=== PATIENT | female | born 1945 | race Caucasian/White ===

== ENCOUNTER 2023-02-21 10:16 | Emergency (ER) | payer OTHER ==
--- OUTSIDE RECORDS SUMMARY | 2023-02-21 10:29 | XMS REPORT | Continuity of Care Document ---
:1945 Author Organization [facility] t Address [address] [place] [address] Care Team Providers Name Role Phone Fabrizio VALLE, Sayda Primary Care Physician Sayda Dinh Attending Clinician NHAN HOUSER Attending Clinician Unavailable Nhan Houser Attending Clinician THEA POWELL Attending Clinician Unavailable Thea Powell MD Attending Clinician Anupam Grider Attending Clinician ANUPAM GRIDER Attending Clinician Unavailable Urbano Arvizu Attending Clinician Unavailable VISIT, NURSE [facility] Attending Clinician Unavailable Junior Duke MD Attending Clinician Sayda Dinh Attending Clinician VISIT, NURSE YAMILETHN Attending Clinician Unavailable Marycruz Ferguson Attending Clinician THEA POWELL Admitting Clinician Unavailable Sayda Dinh Admitting Clinician Unavailable Payers Payer Name Policy Type Policy Number Effective Date Expiration Date Trip WHITTEN [id number] 2016 00:00:00 Problems Condition Condition Condition Status Onset Resolution Last Treating Co mments Source Name Details Category Date Date Treatment Clinician Date Fatigue Fatigue Diagnosis Active 2023-02-20 Memoria (finding) (finding) 02-17 09:03:03 l Active 00:00: [place] 02/17/2023 00 Diagnosis 02/20/2023 [facility] [place] Chronic Chronic Diagnosis Active 2023-02-20 Memoria cough cough 02-17 09:03:03 l (finding) (finding) 00:00: Herm theresa Active 00 02/17/2023 Diagnosis 02/20/2023 Medical [facility] [place] G31.84 G31.84 Diagnosis Active 2023-02-11 Me moria Active 02-04 12:23:00 l 02/04/2023 00:00: Jann wallace 00 [place] Acute Acute Diagnosis Active 2022-11-16 Mem oria bacterial bacterial 11-13 12:35:07 l bronchitis bronchitis 00:00: Vernon medrano (disorder) (disorder) 00 Active 11/13/2022 Diagnosis 11/16/2022 [facility] [place] Acute left Acute Diagnosis Active 2022-09-21 Memoria otitis left 3 12:47:11 l media otitis 00:00: Faustino (disorder) media 00 (disorder) Active 09/18/2022 Diagnosis 09/21/2022 [facility] [place] BILATERAL BILATERAL Diagnosis Active 2022-02-09 Memoria HAND HAND 02-09 09:03:00 l NUMBNESS NUMBNESS 00:00: Jann wallace TINGLING TINGLING 00 Active 02/09/2022 [facility] S/P RTC S/P RTC Diagnosis Active 2018-02-20 Memoria REPAIR REPAIR -17 10:13:00 l Active 08:00: Faustino 10/28/2017 00 [facility] [facility] Hypertensi Hypertensi Disease Active M ethodi ve urgency ve urgency 8-19 st 00:00: Hospita 00 l Anxiety Anxiety Disease Active [facility] Benign Benign Disease Active Univers hypertensi hypertensi it y of on on [facility] Hyperlipid Hyperlipid Disease Active U kashif emseven emia ity of [facility] CAD, CAD, Disease Active Overview: Univer s multiple multiple Formattin ity of vessel vessel g of this [place] note Medical might be Branch different from the original. 5 stents placed-se cardiolog ist-dr. Woodall Primary Primary Problem 2018-10-08 Oh moria osteoarthr osteoarthr 11:11:51 l itis, itis, Faustino right right shoulder shoulder 10/08/2018 [facility] [facility] Pain in Pain in Problem 2018-10-08 Me moria right right 11:11:51 l shoulder shoulder Jann n 10/08/2018 [facility] [facility] Muscle Muscle Problem 2018-10-08 Imer nahum weakness weakness 11:11:51 l (generaliz (generaliz [facility] ed) ed) 10/08/2018 [facility] [facility] Encounter Encounter Problem 2021-11-04 Memoria for for 01:27:53 l screening screening Herm theresa mammogram mammogram for for malignant malignant neoplasm neoplasm of breast of breast 11/04/2021 Medical Group,[facility] Z12.31 - Z12.31 - Diagnosis Active 2021-11-01 Memoria ENCNTR ENCNTR 09:58:00 l SCREEN SCREEN [place] MAMMOGRAM MAMMOGRAM FOR MA FOR MA Active [facility] G31.84 - G31.84 - Diagnosis Active 2021-10-03 Memoria MILD MILD 15:34:00 l COGNITIVE COGNITIVE Herm theresa IMPAIRMENT IMPAIRMENT , SO , SO Active [facility] [place] R20.2 - R20.2 - Diagnosis Active 2022-02-01 Memoria PARESTHESI PARESTHESI 10:13:00 l A OF SKIN A OF SKIN Herm theresa Active [facility] [place] [facility] Breast Breast Problem Active 2023-02-20 Imer nahum neoplasm neoplasm 09:03:03 l screening screening Herm theresa (procedure (procedure ) ) Active Problem 02/20/2023 Medical Group,[facility] Women[facility] Outpatient Imaging [place]^^^^^^ ^^^[id number] ,[facility] Coronary Coronary Problem Active 2023-02-20 Memoria arterioscl arterioscl 09:03:03 l erosis erosis Faustino (disorder) (disorder) Active Problem 02/20/2023 Medical Group,[facility] Outpatient Imaging [place]^^^^^^ ^^^[id number] ,[facility] Primary [facility] Herpes Herpes Problem Active 2023-02-20 Mem oria labialis labialis 09:03:03 l (disorder) (disorder) He rmann Active Problem 02/20/2023 Medical Group,[facility] Outpatient Imaging [place]^^^^^^ ^^^[id number] ,[facility] Hypertensi Hypertens Problem Active 2023-02-20 Memoria ve jovita 09:03:03 l disorder, disorder, Herm theresa systemic systemic arterial arterial (disorder) (disorder) Active Problem 02/20/2023 Medical Group,[facility] Outpatient [facility]^^^^^^ ^^^[id number] ,[facility] Primary [facility] Impaired Impaired Problem Active 2023-02-20 Memoria cognition cognition 09:03:03 l (finding) (finding) Herm theresa Active Problem 02/20/2023 Medical Group,[facility] Outpatient Imaging [place]^^^^^^ ^^^[id number] ,[facility], [facility] Impaired Problem Active 2023-02-20 Memoria fasting fasting 09:03:03 l glycaemia glycaemia Herm theresa (disorder) (disorder) Active Problem 02/20/2023 Medical Group,[facility] Outpatient Imaging [place]^^^^^^ ^^^[id number] ,[facility], [facility] Multiple Multiple Problem Active 2023-02-20 Memoria joint pain joint pain 09:03:03 l (finding) (finding) Herm theresa Active Problem 02/20/2023 [facility] Primary [facility] [place] Patient Patient Problem Active 2023-02-20 Me moria encounter encounter 09:03:03 l status status [place] (finding) (finding) Active Problem 02/20/2023 [facility] Outpatient Imaging [place]^^^^^^ ^^^[id number] ,[facility] Peripheral Periphera Problem Active 2023-02-20 Memoria nerve l nerve 09:03:03 l disease disease Faustino (disorder) (disorder) Active Problem 02/20/2023 [facility] Postmenopa Postmenop Problem Active 2023-02-20 Memoria usal state ausal 09:03:03 l (finding) state Faustino (finding) Active Problem 02/20/2023 [facility] Outpatient Imaging [place]^^^^^^ ^^^[id number] ,[facility] 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 He rmann episodes, episodes, mild mild (disorder) (disorder) Active Problem 02/20/2023 Medical Group,[facility] Outpatient Imaging [place]^^^^^^ ^^^[id number] ,[facility], [facility] [place],[facility] 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 Ely nn (disorder) of wrist (disorder) Active Problem 02/20/2023 Medical Group,[facility] Primary [facility] [place] 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 2023-02-20 Memoria rosis of erosis of 02-17 09:03:03 09:03:03 l coronary coronary 14:35: Jann n artery artery 00 (disorder) (disorder) 02/17/2023 Diagnosis 02/20/2023 Medical Group,[facility] Primary [facility] [place] Essential Essential Diagnosis 2023-02-20 2023-02-20 Memoria hypertensi hypertensi 02-17 09:03:03 09:03:03 l on on 14:35: Faustino (disorder) (disorder) 00 02/17/2023 Diagnosis 02/20/2023 Medical Group,[facility] Primary [facility] [place] History of Past Illness Condition Condition Condition Status Onset Resolution Last Treating Co mments Source Name Details Category Date Date Treatment Clinician Date Acute Acute Diagnosis 2022-11-16 2022-11-16 Memoria infective infective 5-03 12:35:07 12:35:07 l bronchitis bronchitis 20:03: He rmann (disorder) (disorder) 00 11/13/2022 Diagnosis 11/16/2022 [facility] [place] Mild Mild Diagnosis 2022-09-21 2022-09-21 Memoria recurrent recurrent 09-18 12:47:11 12:47:11 l major major 15:53: [place] depression depression 00 (disorder) (disorder) Diagnosis 09/21/2022 [facility] [place] Acute Acute Diagnosis 2022-09-21 2022-09-21 Memoria non-suppur non-suppur - 12:47:11 12:47:11 l ative ative 15:48: Faustino otitis otitis 00 media media (disorder) (disorder) 09/18/2022 Diagnosis 09/21/2022 Medical Group Pain in Pain in Problem 2022-03-09 2022-03-09 Memoria unspecifie unspecifie 03-06 03:28:04 03:28:04 l d joint d joint 13:38: Faustino 03/06/2022 00 03/09/2022 Medical Group Other Other Problem 2022-03-09 2022-03-09 Mitra stevenson specified specified 03-06 03:28:04 03:28:04 l mononeurop mononeurop 13:36: He marcela athies of athies of 00 bilateral bilateral upper upper limbs limbs 03/06/2022 Medical Group Polyneurop Polyneuro Problem 2022-02-11 2022-02-11 Memoria mikie rashid, 02-09 21:34:10 21:34:10 l unspecifie unspecifie 13:43: He rmann d d 00 02/09/2022 [facility] Pain in Pain in Problem 2022-01-24 2022-01-24 Memoria right right 01-21 02:00:20 02:00:20 l upper arm upper arm 20:09: Deborah cardenas 01/21/2022 00 01/24/2022 Medical Group Pain in Pain in Problem 2022-01-24 2022-01-24 Memoria left upper left upper 01-21 02:00:20 02:00:20 l arm arm 20:09: Faustino 01/21/2022 00 01/24/2022 Medical Group Atheroscle Atheroscl Problem 2022-01-24 2022-01-24 Memoria rotic erotic 01-21 02:00:20 02:00:20 l heart heart 20:03: Faustino disease of disease of 00 menominee menominee coronary coronary artery artery without without angina angina pectoris pectoris 01/21/2022 01/24/2022 Medical Group Impaired Impaired Problem 2022-01-24 2022-01-24 Memoria fasting fasting 01-21 02:00:20 02:00:20 l glucose glucose 20:03: Faustino 01/21/2022 00 01/24/2022 Medical Group Essential Essential Problem 2022-0 2022-01-24 2022-01-24 Memoria (primary) (primary) 01-21 02:00:20 02:00:20 l hypertensi hypertensi 20:03: Vernon rmann on on 01/21/2022 01/24/2022 Medical Group Paresthesi Paresthes Problem 2022-01-24 2022-01-24 Memoria a of skin ia of skin 01-21 02:00:20 02:00:20 l 01/21/2022 20:03: Jann wallace 01/24/2022 00 [facility] Restless Restless Problem 2021-10-19 2021-10-19 Memoria legs legs 4-05 03:52:58 03:52:58 l syndrome syndrome 16:16: Jann wallace 10/16/2021 00 2 [facility] Pain in Pain in Problem 2021-10-19 2021-10-19 Memoria left leg left leg 4-05 03:52:58 03:52:58 l 10/16/2021 16:06: Jann wallace 2 [facility] Other Other Problem 2021-07-29 2021-07-29 M emoria amnesia amnesia 1- 01:34:30 01:34:30 l 07/26/2021 17:26: Jann wallace 07/29/2021 00 [facility] Other Other Problem 2021-07-29 2021-07-29 M emoria gastritis gastritis 1- 01:34:30 01:34:30 l without without 17:21: Faustino bleeding bleeding 07/26/2021 2 [facility] Major Major Problem 2021-07-29 2021-07-29 M emoria depressive depressive 1-13 01:34:30 01:34:30 l disorder, disorder, 17:17: Herm theresa recurrent, recurrent, 00 mild mild 07/26/2021 2 [facility] Complete Complete Problem 2018-10-08 2018-10-08 Memoria rotator rotator 9-14 11:11:51 11:11:51 l cuff tear cuff tear 05:13: Deborah cardenas or rupture or rupture 12 of right of right shoulder, shoulder, not not specified specified as as traumatic traumatic 03/27/2018 10/08/2018 [facility] [facility] Allergies, Adverse Reactions, Alerts Allergy Allergy Status Severity Reaction(s) Onset Inactive Treating Comm ents Source Name Type Date Date Clinician Penicill Propensi Active Hives 2015-07 Method i ins ty to 0-21 st adverse 00:00: Hospita reaction 00 l s to drug Penicill Propensi Active Hives 2015-07 Method i ins ty to 0-21 st adverse 00:00: Hospita reaction 00 l s to drug Penicill DA Active U [facility] ins 03-13 Clear 00:00: Kumar 00 [facility] Penicill DA Active U [facility] ins 8 Clear 00:00: Kumar 00 [facility] PENICILL Drug Active Hives Univers INS Class 1-20 ity of 00:00: [place] 00 [facility] Penicill Propensi Active Hives As a Univer s ins ty to 1-20 child ity of adverse 00:00: [place] reaction 00 [facility] [place] penicill penicill Active Memori a ins ins l Faustino Family History Family Member Diagnosis Comments Start Date Stop Date Source Natural father CABG/Stent [facility] Natural father Heart attack [facility] Paternal aunt CABG/Stent [facility] Paternal grandmother CABG/Stent [facility] Social History Social Habit Start Date Stop Date Quantity Comments Source Sexual orientation 2018-09-29 Heterosexual Meth odist 14:28:57 (finding) Hospital Gender identity [facility] Exposure to 2022-07-16 2022-07-26 Not sure University of SARS-CoV-2 (event) 00:00:00 12:05:00 [facility] History of Social 2020-02-14 2020-02-[address] function 00:00:00 00:00:00 Hospital Alcohol intake 2020-02-14 2020-02-14 Current non-drinker M ethodist 00:00:00 00:00:00 of alcohol Hospital (finding) Tobacco use and 2011-08-02 2011-08-02 Smokeless tobacco Un iversity of exposure 00:00:00 00:00:00 non-user [facility] Sex Ass[birth year] At [birth year] [facility] 00:00:00 00:00:00 Hospital Smoking Status Start Date Stop Date Source Tobacco smoking status [facility] Medications Ordered Filled Start Stop Current Ordering Indication Dosage Frequency Signature Comments Components Source Medication Medication Date Date Medication? Clinician (SIG) Name Name diclofenac Yes = 1 tab, Mem oria sodium 50 8-07 PO, BID, l mg oral 18:38: PRN [place] enteric 00 NEEDED FOR coated, PAIN AND delayed-rel INFLAMMATI ease tablet ON, # 60 tab, 0 Refill(s), Pharmacy: [facility] [id number], 154.94, cm, 02/17/23 9:19:00 CDT, Height, 64.091, kg, 02/17/23 9:19:00 CDT, Weight benzonatate Yes 200 mg = 1 Memoria 200 mg oral 8-07 cap, PO, l capsule 14:43: TID, PRN Jann n 00 cough, do not crush or chew, X 10 day, # 30 cap, 0 Refill(s), Pharmacy: [facility] [id number], 154.94, cm, 02/17/23 9:19:00 CDT, Height, 64.091, kg, 02/17/23 9:19:00 CDT, Weight albuterol Yes 2 puff, Memor ia 90 mcg/inh 807 INHALATION l inhalation 14:43: , Q4H, PRN H ermann aerosol 00 for wheezing, # 1 ea, 0 Refill(s), Pharmacy: [facility] [id number], *may substitute any generic albuterol inhaler, 154.94, cm, 02/17/23 9:19:00 CDT, Height, 64.091, kg, 02/17/23 9:19:00 CDT, Weight predniSONE Yes 20 mg = 1 Me moria 20 mg oral 8-07 tab, PO, l tablet 14:18: Daily, # 7 Ely nn 00 tab, 0 Refill(s) rOPINIRole Yes ONE TO TWO M emoria 0.25 mg 7-17 TABLETS, l oral tablet 20:17: PO, Jann n 00 Bedtime, # 180 tab, 1 Refill(s), Pharmacy: [facility] [id number], 154.94, cm, 11/13/22 14:55:00 CDT, Height, 64.636, kg, 11/13/22 14:55:00 CDT, Weight omeprazole Yes = 1 cap, Mem oria 20 mg oral 6-21 PO, Daily, l delayed 15:22: # 90 Faustino release 00 unknown capsule unit, 0 Refill(s), Pharmacy: [facility], 154.94, cm, 11/13/22 14:55:00 CDT, Height, 64.636, kg, 11/13/22 14:55:00 CDT, Weight ATORVASTATI Yes ATORVASTAT Memoria N CALCIUM 6-13 IN CALCIUM l 40 MG 20:34: 40 MG [place] Tablet 00 Tablet, 1 tab, PO, Daily, # 90 tab, Refill(s) 0, Pharmacy: [facility], 154.94, cm, 11/13/22 14:55:00 CDT, Height, 64.636, kg, 11/13/22 14:55:00 CDT, Weight Azithromyci Yes See Memori a n 5 Day 5-03 Instructio l Dose Pack 20:03: ns, Take 2 He rmann 250 mg oral 00 tablets by tablet mouth the first day then 1 tablet by mouth days 2-5., X 5 day, # 6 tab, 0 Refill(s), Pharmacy: [facility] [id number], 154.94, cm, 11/13/22 14:55:00 CDT, Height, 64.636, kg, 11/13/22 14:55:00 CDT, Weight citalopram Yes = 1 tab, Mem oria 40 mg oral 4-11 PO, Daily, l tablet 22:57: # 90 tab, Jann n 00 1 Refill(s), Pharmacy: [facility], 154.94, cm, 09/18/22 9:38: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, Height, 62.455, kg, 09/18/22 9:38: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, Weight irbesartan Yes = 1 tab, Mem oria 300 mg oral 4-11 PO, Daily, l tablet 22:57: # 90 tab, Jann n 00 1 Refill(s), Pharmacy: [facility], 154.94, cm, 09/18/22 9:38: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, Height, 62.455, kg, 09/18/22 9:38: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, Weight Metoprolol 0 Yes = 1 tab, Mem oria Succinate 3-30 PO, Daily, l ER 100 mg 21:03: # 90 tab, Her heller oral 00 1 tablet, Refill(s), extended Pharmacy: release [facility], 154.94, cm, 09/18/22 9:38: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, Height, 62.455, kg, 09/18/22 9:38: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, Weight Zithromax 0 Yes See Memoria 250 mg oral 3-08 Instructio l tablet 15:49: ns, TAKE 2 Ely nn 00 TABLETS ON DAY ONE, THEN 1 TABLET DAILY ON DAYS 2 -4, # 6 tab, 0 Refill(s), Pharmacy: [facility] [id number], 154.94, cm, 09/18/22 9:38: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, Height, 62.455, kg, 09/18/22 9:38: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, Weight methotrexat 0 Yes 0 Memori a e 3-08 Refill(s) l 15:37: Faustino 00 folic acid Yes Daily, 0 Mem oria 3-08 Refill(s) l 15:37: Faustino 00 rOPINIRole 2021-07 Yes ONE TO TWO M emoria 0.25 mg 1-03 TABLETS, l oral tablet 14:33: PO, Jann n 00 Bedtime, # 180 tab, 1 Refill(s), Pharmacy: [facility], 154.94, cm, 03/06/22 8:32:00 CDT, Height, 62.727, kg, 03/06/22 8:32:00 CDT, Weight diclofenac 2021-07 Yes 50 mg = 1 Me moria sodium 50 1-03 tab, PO, l mg oral 14:33: BID, PRN Jann n enteric 00 pain and coated, inflammati delayed-rel on, # 60 ease tablet tab, 1 Refill(s), Pharmacy: [facility], 154.94, cm, 03/06/22 8:32:00 CDT, Height, 62.727, kg, 03/06/22 8:32:00 CDT, Weight diclofenac Yes 50 mg = 1 Me moria sodium 50 8-24 tab, PO, l mg oral 13:45: BID, PRN Jann n enteric 00 pain and coated, inflammati delayed-rel on, # 60 ease tablet tab, 1 Refill(s), Pharmacy: [facility] [id number], 154.94, cm, 03/06/22 8:32:00 CDT, Height, 62.727, kg, 03/06/22 8:32:00 CDT, Weight diclofenac Yes 50 mg = 1 Me moria sodium 50 8-24 tab, PO, l mg oral 13:45: BID, PRN Jann n enteric 00 pain and coated, inflammati delayed-rel on, # 60 ease tablet tab, 1 Refill(s), Pharmacy: [facility] [id number], 154.94, cm, 03/06/22 8:32:00 CDT, Height, 62.727, kg, 03/06/22 8:32:00 CDT, Weight Medrol 0 Yes See Memoria Dosepak 4 8-09 Instructio l mg oral 13:07: ns, PO, as Herm theresa tablet 00 directed on package labeling, X 6 day, # 1 ea, 0 Refill(s), Pharmacy: [facility] [id number], 154.94, cm, 02/09/22 8:01:00 CDT, Height, 60.455, kg, 02/09/22 8:01:00 CDT, Weight Medrol 0 Yes See Memoria Dosepak 4 8-09 Instructio l mg oral 13:07: ns, PO, as Herm theresa tablet 00 directed on package labeling, X 6 day, # 1 ea, 0 Refill(s), Pharmacy: [facility] [id number], 154.94, cm, 02/09/22 8:01:00 CDT, Height, 60.455, kg, 02/09/22 8:01:00 CDT, Weight citalopram 0 Yes = 1 tab, Mem oria 40 mg oral 8-02 PO, Daily, l tablet 20:08: # 90 tab, Jann n 00 1 Refill(s), Pharmacy: [facility] ([facility]), 154.94, cm, 02/09/22 8:01:00 CDT, Height, 60.455, kg, 02/09/22 8:01:00 CDT, Weight irbesartan 2021-0 Yes = 1 tab, Mem oria 300 mg oral 8-02 PO, Daily, l tablet 19:41: # 90 tab, Jann n 00 1 Refill(s), Pharmacy: [facility] ([facility]), 154.94, cm, 02/09/22 8:01:00 CDT, Height, 60.455, kg, 02/09/22 8:01:00 CDT, Weight Metoprolol 2021-0 Yes = 1 tab, Mem oria Succinate 8-02 PO, Daily, l ER 100 mg 19:41: # 90 tab, Her heller oral 00 1 tablet, Refill(s), extended Pharmacy: release [facility] ([facility]), 154.94, cm, 02/09/22 8:01:00 CDT, Height, 60.455, kg, 02/09/22 8:01:00 CDT, Weight gabapentin 2021-0 Yes 100 mg = 1 M emoria 100 mg oral 7-30 cap, PO, l capsule 13:42: TID, # 63 Ely nn 00 cap, 1 Refill(s), Pharmacy: [facility] [id number], 154.94, cm, 02/09/22 8:01:00 CDT, Height, 60.455, kg, 02/09/22 8:01:00 CDT, Weight gabapentin 2021-0 Yes 100 mg = 1 M emoria 100 mg oral 7-30 cap, PO, l capsule 13:42: TID, # 63 Ely nn 00 cap, 1 Refill(s), Pharmacy: [facility] [id number], 154.94, cm, 02/09/22 8:01:00 CDT, Height, 60.455, kg, 02/09/22 8:01:00 CDT, Weight doxycycline 2-0 Yes 100 mg = 1 Memoria hyclate 100 7-19 tab, PO, l mg oral 17:01: Q12H, X 7 Ely nn tablet 00 day, # 14 tab, 0 Refill(s), Pharmacy: [facility] [id number], 154.94, cm, 01/21/22 14:36:00 CDT, Height, 61.455, kg, 01/21/22 14:36:00 CDT, Weight doxycycline 2021-0 Yes 100 mg = 1 Memoria hyclate 100 7-19 tab, PO, l mg oral 17:01: Q12H, X 7 Ely nn tablet 00 day, # 14 tab, 0 Refill(s), Pharmacy: [facility] [id number], 154.94, cm, 01/21/22 14:36:00 CDT, Height, 61.455, kg, 01/21/22 14:36:00 CDT, Weight rOPINIRole 2021-0 Yes See Memoria 0.25 mg 4-05 Instructio l oral tablet 16:17: ns, 1-2 po Faustino 00 before betime, # 60 tab, 1 Refill(s), Pharmacy: [facility] [id number], 154.94, cm, 10/16/21 11:01:00 CDT, Height, 62.091, kg, 10/16/21 11:01:00 CDT, Weight rOPINIRole 2021-0 Yes See Memoria 0.25 mg 4-05 Instructio l oral tablet 16:17: ns, 1-2 po Faustino 00 before betime, # 60 tab, 1 Refill(s), Pharmacy: [facility] [id number], 154.94, cm, 10/16/21 11:01:00 CDT, Height, 62.091, kg, 10/16/21 11:01:00 CDT, Weight irbesartan 2021-0 Yes 300 mg = 1 M emoria 300 mg oral 1-13 tab, PO, l tablet 17:22: Daily, # Faustino 00 90 tab, 1 Refill(s), Pharmacy: 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, 154.94, cm, 07/26/21 11:06: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, Height, 61.273, kg, 07/26/21 11:06: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, Weight omeprazole 0 Yes 20 mg = 1 Me moria 20 mg oral 1-13 cap, PO, l delayed 17:21: Daily, 60 Ely nn release 00 unknown capsule unit, # 90 cap, 3 Refill(s), Pharmacy: [facility] Pharmacy Mail Delivery, 154.94, cm, 07/26/21 11:06: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, Height, 61.273, kg, 07/26/21 11:06: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, Weight omeprazole 0 Yes 20 mg = 1 Me moria 20 mg oral 1-13 cap, PO, l delayed 17:21: Daily, 60 [place] nn release 00 unknown capsule unit, # 90 cap, 3 Refill(s), Pharmacy: [facility] Mail Delivery, 154.94, cm, 07/26/21 11:06: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, Height, 61.273, kg, 07/26/21 11:06: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, Weight atorvastati 0 Yes 40 mg = 1 M emoria n 40 mg 1-13 tab, PO, l oral tablet 17:20: Daily, 90 H ermann 00 tab, # 90 tab, 3 Refill(s), Pharmacy: [facility] Mail Delivery, 154.94, cm, 07/26/21 11:06: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, Height, 61.273, kg, 07/26/21 11:06: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, Weight atorvastati 2021-0 Yes 40 mg = 1 M emoria n 40 mg 1-13 tab, PO, l oral tablet 17:20: Daily, 90 H ermann 00 tab, # 90 tab, 3 Refill(s), Pharmacy: [facility] Mail Delivery, 154.94, cm, 07/26/21 11:06: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, Height, 61.273, kg, 07/26/21 11:06: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, Weight Metoprolol 0 Yes 100 mg = 1 M emoria Succinate 1-13 tab, PO, l ER 100 mg 17:18: Daily, 90 Her heller oral 00 tab, # 30 tablet, tab, 0 extended Refill(s), release Pharmacy: [facility] [id number], 154.94, cm, 07/26/21 11:06: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, Height, 61.273, kg, 07/26/21 11:06: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, Weight citalopram 2-0 Yes 40 mg = 1 Me moria 40 mg oral 1-13 tab, PO, l tablet 17:18: Daily, # [place] 00 90 tab, 1 Refill(s), Pharmacy: 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 Mail Delivery, 154.94, cm, 07/26/21 11:06: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, Height, 61.273, kg, 07/26/21 11:06: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, Weight metoprolol 2020-07 Yes TAKE 1 Metho di succinate 0-[address] XL 00:00: EVERY Hospita (TOPROL-XL) 00 NIGHT l 100 mg 24 hr tablet metoprolol 2020-07 Yes TAKE 1 Metho di succinate 0-[address] XL 00:00: EVERY Hospita (TOPROL-XL) 00 NIGHT l 100 mg 24 hr tablet metoprolol 2020-07 Yes TAKE 1 Metho di succinate 0-[address] XL 00:00: EVERY Hospita (TOPROL-XL) 00 NIGHT l 100 mg 24 hr tablet metoprolol 2020-07 Yes TAKE 1 Metho di succinate 0-[address] XL 00:00: EVERY Hospita (TOPROL-XL) 00 NIGHT l 100 mg 24 hr tablet doxycycline Yes 100 mg = 1 Memoria hyclate 100 9-23 tab, PO, l MG Oral 20:36: Q12H, X 10 Herm theresa Tablet day, # 20 tab, 0 Refill(s), Pharmacy: [facility] [id number], 154.94, cm, 09/12/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, 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, 60.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, kg, 09/12/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, Weight doxycycline Yes 100 mg = 1 Memoria hyclate 100 9-23 tab, PO, l MG Oral 20:36: Q12H, X 10 Herm theresa Tablet 00 day, # 20 tab, 0 Refill(s), Pharmacy: [facility] [id number], 154.94, cm, 09/12/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, Height, 60.091, kg, 09/12/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, Weight {21 0 Yes See Memoria (Methylpred 9-21 Instructio l nisolone 4 21:49: ns, PO, as H ermann MG Oral 00 directed Tablet on package [Medrol]) } labeling, Pack X 6 day, # [Medrol 1 ea, 0 Dosepak] Refill(s), Pharmacy: [facility] [id number], 154.94, cm, 09/12/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, Height, 60.091, kg, 09/12/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, Weight {2020-0 Yes See Memoria (Methylpred 04-03 Instructio l nisolone 4 21:49: ns, PO, as H ermann MG Oral 00 directed Tablet on package [Medrol]) } labeling, Pack X 6 day, # [Medrol 1 ea, 0 Dosepak] Refill(s), Pharmacy: [facility] [id number], 154.94, cm, 09/12/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, Height, 60.091, kg, 09/12/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, Weight Fluticasone 0 Yes 2 spray, Me moria propionate - NASAL, l 0.05 20:17: Daily, PRN Faustino MG/ACTUAT 00 Nasal Metered Congestion Dose Nasal , in each Fred nostril, # [Flonase] 16 gm, 1 Refill(s), Pharmacy: [facility] [id number], 154.94, cm, 09/12/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, Height, 60.091, kg, 09/12/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, Weight Fluticasone Yes 2 spray, Me moria propionate - NASAL, l 0.05 20:17: Daily, PRN Faustino MG/ACTUAT 00 Nasal Metered Congestion Dose Nasal , in each Fred nostril, # [Flonase] 16 gm, 1 Refill(s), Pharmacy: [facility] [id number], 154.94, cm, 09/12/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, Height, 60.091, kg, 09/12/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, Weight Flonase 0 Yes 2 spray, Memori a 0.05 mg/inh - NASAL, l nasal spray 20:17: Daily, PRN [place] 00 Nasal Congestion , in each nostril, # 16 gm, 1 Refill(s), Pharmacy: [facility] [id number], 154.94, cm, 09/12/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, Height, 60.091, kg, 09/12/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, Weight atorvastati Yes 90 tab, 0 M emoria n 40 mg 9-21 Refill(s) l oral tablet 18:50: Jann n 00 Metoprolol Yes 90 tab, 0 Me moria Succinate 9-21 Refill(s) l ER 100 mg 18:50: Faustino oral 00 tablet, extended release omeprazole Yes 60 unknown M emoria 20 mg oral 9-21 unit, 0 l delayed 18:50: Refill(s) [place] nn release 00 capsule [id number] Yes 4000 mL, 0 Mem oria with 9-21 Refill(s) l Electrolyte 18:50: Jann n s 00 (Eqv-NuLYTE LY) oral powder for reconstitut ion {2 (480 ML Yes 354 mL, 0 Me moria Magnesium 9-21 Refill(s) l Sulfate 18:50: [place] 0.0277 00 MEQ/ML / potassium sulfate 0.0374 MEQ/ML / sodium sulfate 0.257 MEQ/ML Oral Solution) } Pack [Suprep Bowel Prep Kit] atorvastati Yes 90 tab, 0 M emoria n 40 mg 9-21 Refill(s) l oral tablet 18:50: Jann n 00 Metoprolol Yes 90 tab, 0 Me moria Succinate 9-21 Refill(s) l ER 100 mg 18:50: Faustino oral 00 tablet, extended release omeprazole Yes 60 unknown M emoria 20 mg oral 9-21 unit, 0 l delayed 18:50: Refill(s) [place] nn release 00 capsule {2 (480 ML Yes 354 mL, 0 Me moria Magnesium 9-21 Refill(s) l Sulfate 18:50: [place] 0.0277 00 MEQ/ML / potassium sulfate 0.0374 MEQ/ML / sodium sulfate 0.257 MEQ/ML Oral Solution) } Pack [Suprep Bowel Prep Kit] PEG-3350 Yes 4000 mL, 0 Mem oria with 9-21 Refill(s) l Electrolyte 18:50: Jann n s 00 (Eqv-NuLYTE LY) oral powder for reconstitut ion irbesartan Yes TAKE 1 Metho di (AVAPRO) 6-[address] 300 MG 00:00: EVERY DAY Hospit a tablet 00 l atorvastati Yes TAKE 1 Meth noah n (LIPITOR) 6-[address] 40 mg 00:00: EVERY Hospita tablet 00 NIGHT l irbesartan Yes TAKE 1 Metho di (AVAPRO) 6-[address] 300 MG 00:00: EVERY DAY Hospit a tablet 00 l atorvastati Yes TAKE 1 Meth noah n (LIPITOR) 6-[address] 40 mg 00:00: EVERY Hospita tablet 00 NIGHT l irbesartan Yes TAKE 1 Metho di (AVAPRO) 6-[address] 300 MG 00:00: EVERY DAY Hospit a tablet 00 l atorvastati Yes TAKE 1 Meth noah n (LIPITOR) 6-[address] 40 mg 00:00: EVERY Hospita tablet 00 NIGHT l irbesartan Yes TAKE 1 Metho di (AVAPRO) 6-[address] 300 MG 00:00: EVERY DAY Hospit a tablet 00 l atorvastati Yes TAKE 1 Meth noah n (LIPITOR) 6-[address] 40 mg 00:00: EVERY Hospita tablet 00 NIGHT l irbesartan Yes TAKE 1 Metho di (AVAPRO) 6-[address] 300 MG 00:00: EVERY DAY Hospit a tablet 00 l atorvastati Yes TAKE 1 Meth noah n (LIPITOR) 6-[address] 40 mg 00:00: EVERY Hospita tablet 00 NIGHT l Phenazopyri No 200 mg = 1 Memoria dine 3-02 tab, PO, l hydrochlori 20:45: TID, PRN He rmann de 200 MG 00 Dysuria, X Oral Tablet 2 day, # 6 [Pyridium] tab, 0 Refill(s), Pharmacy: [facility], 154.94, cm, 09/12/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, 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, 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, kg, 09/12/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, Weight Nitrofurant 0 Yes 100 mg = 1 Memoria oin 100 MG 3-02 cap, PO, l Oral 20:45: BID, X 7 Faustino Capsule 00 day, # 14 [Macrobid] cap, 0 Refill(s), Pharmacy: [place] [id number], 154.94, cm, 09/12/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, Height, 60.091, kg, 09/12/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, Weight Phenazopyri No 200 mg = 1 Memoria dine 3-02 tab, PO, l hydrochlori 20:45: TID, PRN He rmann de 200 MG 00 Dysuria, X Oral Tablet 2 day, # 6 [Pyridium] tab, 0 Refill(s), Pharmacy: [facility], 154.94, cm, 09/12/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, Height, 60.091, kg, 09/12/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, Weight Nitrofurant Yes 100 mg = 1 Memoria oin 100 MG 3-02 cap, PO, l Oral 20:45: BID, X 7 [place] Capsule 00 day, # 14 [Macrobid] cap, 0 Refill(s), Pharmacy: [place] [id number], 154.94, cm, 09/12/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, Height, 60.091, kg, 09/12/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, Weight Aspirin Low Yes 81 mg = 1 M emoria Dose 81 mg 2-03 tab, CHEW, l oral 15:59: Daily, 0 [place] tablet, 00 Refill(s) chewable Aspirin Low 0 Yes 81 mg = 1 M emoria Dose 81 mg 2-03 tab, CHEW, l oral 15:59: Daily, 0 [place] tablet, 00 Refill(s) chewable Aspirin Low 2020-0 Yes 81 mg = 1 M emoria Dose 81 mg 2-03 tab, CHEW, l oral 15:59: Daily, 0 Faustino tablet, 00 Refill(s) chewable citalopram Yes 40 mg = 1 Me moria 40 mg oral 2-03 tab, PO, l tablet 15:56: Daily, # [place] 00 90 tab, 3 Refill(s), Pharmacy: [facility]ie, 157.48, cm, 08/16/20 9:49: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, Height, 59.636, kg, 08/16/20 9:49: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, Weight citalopram 0 Yes 40 mg = 1 Me moria 40 mg oral 2-03 tab, PO, l tablet 15:56: Daily, # [place] 00 90 tab, 3 Refill(s), Pharmacy: [facility], 157.48, cm, 08/16/20 9:49: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, Height, 59.636, kg, 08/16/20 9:49: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, Weight citalopram 2019-07 Yes 40 mg = 1 Me moria 40 mg oral 1-09 tab, PO, l tablet 17:22: Daily, # Faustino 00 90 tab, 0 Refill(s), Pharmacy: [facility], 157.48, cm, 03/16/20 10:45:00 CDT, Height, 61.273, kg, 03/16/20 10:45:00 CDT, Weight citalopram 2019-07 Yes 40 mg = 1 Me moria 40 mg oral 1-09 tab, PO, l tablet 17:22: Daily, # Faustino 00 90 tab, 0 Refill(s), Pharmacy: [facility], 157.48, cm, 03/16/20 10:45:00 CDT, Height, 61.273, kg, 03/16/20 10:45:00 CDT, Weight naproxen 2020-0 Yes 250mg Q.5D Take 250 Meth noah (NAPROSYN) 9-[address] 250 MG 17:57: mouth 2 Hospita tablet 02 (two) l times a day as needed for mild pain. diphenhydrA 2020-0 Yes 25mg Q.5D Take 25 mg [facility] MINE 9-[address] (BENADRYL) 17:56: (two) Hospit a 25 mg 59 times a l tablet day as needed for sleep. naproxen 2020-0 Yes 250mg Q.5D Take 250 Meth noah (NAPROSYN) 9-[address] 250 MG 12:57: mouth 2 Hospita tablet 02 (two) l times a day as needed for mild pain. naproxen 2020-0 Yes 250mg Q.5D Take 250 Meth noah (NAPROSYN) 9-[address] 250 MG 12:57: mouth 2 Hospita tablet 02 (two) l times a day as needed for mild pain. naproxen 2020-0 Yes 250mg Q.5D Take 250 Meth noah (NAPROSYN) 9-[address] 250 MG 12:57: mouth 2 Hospita tablet 02 (two) l times a day as needed for mild pain. naproxen 2020-0 Yes 250mg Q.5D Take 250 Meth noah (NAPROSYN) 9-[address] 250 MG 12:57: mouth 2 Hospita tablet 02 (two) l times a day as needed for mild pain. diphenhydrA 2020-0 Yes 25mg Q.5D Take 25 mg [facility] MINE 9-[address] (BENADRYL) 12:56: (two) Hospit a 25 mg 59 times a l tablet day as needed for sleep. diphenhydrA 2020-0 Yes 25mg Q.5D Take 25 mg [facility] MINE 9-[address] (BENADRYL) 12:56: (two) Hospit a 25 mg 59 times a l tablet day as needed for sleep. diphenhydrA 2020-0 Yes 25mg Q.5D Take 25 mg [facility] MINE 9-[address] (BENADRYL) 12:56: (two) Hospit a 25 mg 59 times a l tablet day as needed for sleep. diphenhydrA 2020-0 Yes 25mg Q.5D Take 25 mg [facility] MINE 9-[address] (BENADRYL) 12:56: (two) Hospit a 25 mg 59 times a l tablet day as needed for sleep. metoprolol 2020-0 Yes 100mg QD Take 1 Meth noah succinate 9-[address] XL 00:00: (100 mg Hospita (TOPROL-XL) 00 total) by l 100 mg 24 mouth hr tablet nightly. hydroCHLORO 2020-0 Yes 12.5mg QD Take 1 Me thodi thiazide 9-[address] (MICROZIDE) 00:00: (12.5 mg Ho spita 12.5 mg 00 total) by l capsule mouth daily. hydroCHLORO 2020-0 Yes 12.5mg QD Take 1 Me thodi thiazide 9-[address] (MICROZIDE) 00:00: (12.5 mg Ho spita 12.5 mg 00 total) by l capsule mouth daily. hydroCHLORO 2020-0 Yes 12.5mg QD Take 1 Me thodi thiazide 9-[address] (MICROZIDE) 00:00: (12.5 mg Ho spita 12.5 mg 00 total) by l capsule mouth daily. hydroCHLORO 2020-0 Yes 12.5mg QD Take 1 Me thodi thiazide 9-[address] (MICROZIDE) 00:00: (12.5 mg Ho spita 12.5 mg 00 total) by l capsule mouth daily. hydroCHLORO 2020-0 Yes 12.5mg QD Take 1 Me thodi thiazide 9-[address] (MICROZIDE) 00:00: (12.5 mg Ho spita 12.5 mg 00 total) by l capsule mouth daily. aspirin 2020- No 81mg QD Take 1 Methodi (ECOTRIN) 03-17 tablet (81 st 81 MG 00:00: 04:59 mg total) Hospit a enteric 00 :00 by mouth l coated daily. tablet atorvastati 2020- No 40mg QD Take 1 Met hodi n (LIPITOR) 03-17 tablet (40 s t 40 mg 00:00: 00:00 mg total) Hospit a tablet 00 :00 by mouth l nightly. irbesartan 2020- No 300mg QD Take 1 Met hodi (AVAPRO) 03-[address] 300 MG 00:00: 00:00 (300 mg Hospita tablet 00 :00 total) by l mouth daily. citalopram Yes = 1 tab, Mem oria 20 mg oral 03-16 PO, Daily, l tablet 16:07: # 90 tab, Jann n 00 1 Refill(s), Pharmacy: [facility], 157.48, cm, 03/16/20 10:45:00 CDT, Height, 61.273, kg, 03/16/20 10:45:00 CDT, Weight citalopram Yes = 1 tab, Mem oria 20 mg oral 9-03 PO, Daily, l tablet 16:07: # 90 tab, Jann n 00 1 Refill(s), Pharmacy: [place] [address], 157.48, cm, 03/16/20 10:45:00 CDT, Height, 61.273, kg, 03/16/20 10:45:00 CDT, Weight citalopram Yes = 1 tab, Mem oria 20 mg oral 2-27 PO, Daily, l tablet 16:57: # 90 tab, Jann n 00 1 Refill(s), Pharmacy: [place] [address] citalopram Yes = 1 tab, Mem oria 20 mg oral 2-27 PO, Daily, l tablet 16:57: # 90 tab, Jann n 00 1 Refill(s), Pharmacy: [place] [address] {2018-07 Yes See Memoria (Methylpred 1-18 Instructio l nisolone 4 21:44: ns, PO, as H ermann MG Oral 00 directed Tablet on package [Medrol]) } labeling, Pack X 6 day, # [Medrol 1 Pack, 0 Dosepak] Refill(s), Pharmacy: [address] 2018-07 Yes 500 mg = 1 Memoria samm 500 mg 1-18 tab, PO, l oral tablet 21:44: Q12H, X 10 Faustino 00 day, # 20 tab, 0 Refill(s), Pharmacy: [place] [address] {2018-07 Yes See Memoria (Methylpred 1-18 Instructio l nisolone 4 21:44: ns, PO, as H ermann MG Oral 00 directed Tablet on package [Medrol]) } labeling, Pack X 6 day, # [Medrol 1 Pack, 0 Dosepak] Refill(s), Pharmacy: [address] 2018-07 Yes 500 mg = 1 Memoria samm 500 mg 1-18 tab, PO, l oral tablet 21:44: Q12H, X 10 [place] 00 day, # 20 tab, 0 Refill(s), Pharmacy: [place] [address] citalopram 2018-07 Yes = 1 tab, Mem oria 20 mg oral 0-21 PO, Daily, l tablet 16:12: # 90 tab, Jann n 02 1 Refill(s), Pharmacy: [place] [address] citalopram 2018-07 Yes = 1 tab, Mem oria 20 mg oral 0-21 PO, Daily, l tablet 16:12: # 90 tab, Jann n 02 1 Refill(s), Pharmacy: [place] [address] Levofloxaci 2018-07 Yes 500 mg = 1 Memoria n 500 MG 0-21 tab, PO, l Oral Tablet 16:09: Q24H, X 7 H ermann [Levaquin] 00 day, # 7 tab, 0 Refill(s), Pharmacy: [place] [address] Levofloxaci 2018-07 Yes 500 mg = 1 Memoria n 500 MG 0-21 tab, PO, l Oral Tablet 16:09: Q24H, X 7 H ermann [Levaquin] 00 day, # 7 tab, 0 Refill(s), Pharmacy: [place] [address] olmesartan 2018-07 Yes 20 mg = 1 Me moria 20 mg oral 0-21 tab, PO, l tablet 15:48: Daily, # Faustino 00 90 tab, 0 Refill(s) olmesartan 2018-07 Yes 20 mg = 1 Me moria 20 mg oral 0-21 tab, PO, l tablet 15:48: Daily, # [place] 00 90 tab, 0 Refill(s) citalopram Yes = 1 tab, Mem oria 20 mg oral 9-04 PO, Daily, l tablet 16:56: # 30 tab, Jann n 51 Refill(s) 1, Pharmacy: [place] [address] citalopram Yes = 1 tab, Mem oria 20 mg oral 9-04 PO, Daily, l tablet 16:56: # 30 tab, Jann n 51 Refill(s) 1, Pharmacy: [place] [address] clindamycin Yes 300 mg = 1 Memoria 300 mg oral 2-26 cap, PO, l capsule 15:09: BID, X 10 E[place] nn 00 day, # 20 cap, 0 Refill(s), Pharmacy: [place] [address] clindamycin Yes 300 mg = 1 Memoria 300 mg oral 2-26 cap, PO, l capsule 15:09: BID, X 10 [place] nn 00 day, # 20 cap, 0 Refill(s), Pharmacy: [place] [address] valacyclovi Yes 2 gm = 2 Me moria r 1000 MG 2-26 tab, PO, l Oral Tablet 14:58: Q12H, # 4 H ermann [Valtrex] 00 tab, 4 Refill(s), Pharmacy: [place] [address] valacyclovi Yes 2 gm = 2 Me moria r 1000 MG 2-26 tab, PO, l Oral Tablet 14:58: Q12H, # 4 H ermann [Valtrex] 00 tab, 4 Refill(s), Pharmacy: [place] [address] Phenazopyri No 200 mg = 1 Memoria dine -23 tab, PO, l hydrochlori 20:10: TID, PRN He rmann de 200 MG 00 Dysuria, X Oral Tablet 2 day, # 6 [Pyridium] tab, 0 Refill(s), Pharmacy: [place] [address] Phenazopyri No 200 mg = 1 Memoria dine - tab, PO, l hydrochlori 20:10: TID, PRN He rmann de 200 MG 00 Dysuria, X Oral Tablet 2 day, # 6 [Pyridium] tab, 0 Refill(s), Pharmacy: [place] [address] clopidogrel Yes 75 mg = 1 M emoria 75 mg oral - tab, PO, l tablet 20:04: Daily, 0 [place] 00 Refill(s) Potassium Yes 0 Memoria Chloride 08-05 Refill(s) l 20:04: [place] 00 Hydrochloro Yes 25 mg = 1 M emoria thiazide 25 - tab, PO, l MG Oral 20:04: Daily, 0 Jann n Tablet 00 Refill(s) cetirizine Yes 10 mg = 1 Me moria hydrochlori -23 tab, PO, l de 10 MG 20:04: Daily, 0 Ely nn Oral Tablet 00 Refill(s) [Zyrtec] atorvastati Yes 20 mg = 1 M emoria n 20 mg -23 tab, PO, l oral tablet 20:04: Daily, 0 He rmann 00 Refill(s) metoprolol Yes 50 mg = 1 Me moria succinate 1-23 cap, PO, l 50 mg oral 20:04: Daily, 0 Her heller capsule, 00 Refill(s) extended release Magnesium 2019-0 Yes PO, 0 Memoria Oxide - Refill(s) l 20:04: [place] 00 irbesartan Yes 300 mg = 1 M emoria 300 mg oral -23 tab, PO, l tablet 20:04: Daily, 0 [place] 00 Refill(s) metoprolol Yes 50 mg = 1 Me moria succinate -23 cap, PO, l 50 mg oral 20:04: Daily, 0 Her heller capsule, 00 Refill(s) extended release clopidogrel 2018- Yes 75 mg = 1 M emoria 75 mg oral -23 tab, PO, l tablet 20:04: Daily, 0 Faustino 00 Refill(s) Potassium 2018-0 Yes 0 Memoria Chloride - Refill(s) l 20:04: Hydrochloro 2018- Yes 25 mg = 1 M emoria thiazide 25 -23 tab, PO, l MG Oral 20:04: Daily, 0 Jann n Tablet 00 Refill(s) cetirizine Yes 10 mg = 1 Me moria hydrochlori -23 tab, PO, l de 10 MG 20:04: Daily, 0 [place] nn Oral Tablet 00 Refill(s) [Zyrtec] atorvastati Yes 20 mg = 1 M emoria n 20 mg -23 tab, PO, l oral tablet 20:04: Daily, 0 He rmann Refill(s) metoprolol Yes 50 mg = 1 Me moria succinate -23 cap, PO, l 50 mg oral 20:04: Daily, 0 Her heller capsule, 00 Refill(s) extended release Magnesium 2019-0 Yes PO, 0 Memoria Oxide -23 Refill(s) l 20:04: [place] 00 irbesartan Yes 300 mg = 1 M emoria 300 mg oral -23 tab, PO, l tablet 20:04: Daily, 0 [place] 00 Refill(s) metoprolol Yes 50 mg = 1 Me moria succinate -23 cap, PO, l 50 mg oral 20:04: Daily, 0 Her heller capsule, 00 Refill(s) extended release Nitrofurant No 100 mg = 1 Memoria oin 100 MG 1-23 cap, PO, l Oral 19:56: BID, X 7 Faustino Capsule 00 day, # 14 [Macrobid] cap, 0 Refill(s), Pharmacy: [place] [address] Nitrofurant No 100 mg = 1 Memoria oin 100 MG 1-23 cap, PO, l Oral 19:56: BID, X 7 [place] Capsule 00 day, # 14 [Macrobid] cap, 0 Refill(s), Pharmacy: [place] [address] docosahexan 2017-07 Yes [facility] s oic 2-26 ity of acid/epa 14:09: [place] (FISH OIL Medical ORAL) Branch phenazopyri 2017-07 Yes Take by Uni vers dine HCl 0-22 mouth. ity of (AZO ORAL) 10:29: [place] [facility] SERTRALINE 2017-07 Yes Take by [facility] ers HCL 0-08 mouth. ity of (SERTRALINE 10:53: [place] ORAL) [facility] diphenhydrA 2017-07 Yes 25mg Take 25 mg Univers MINE 25 mg 0-08 by mouth ity o f tablet 10:53: as needed. [place] [facility] CITALOPRAM 2017-07 Yes Take by [facility] ers HYDROBROMID 0-08 mouth. ity of E (CELEXA 10:47: [place] ORAL) 29 [facility] aspirin 81 2017-07 Yes 81mg Take 81 mg U nivers mg chewable 0-08 by mouth ity of tablet 10:47: daily. [place] 18 [facility] Nitrofurant 2017-07 Yes [id number] 100mg Take 1 Univers oin&Nit. 0-08 capsule by ity o f Macrocryst 00:00: mouth 2 [place] 100 mg 00 (two) Medical capsule times Branch daily. fluticasone 2017-07 Yes [id number] 2{spray Use 2 Univers 50 0-08 } Sprays in ity of mcg/actuati 00:00: each [place] on nasal 00 nostril Medical spray daily. Branch atorvastati Yes 20mg Take 20 mg Univers n 20 mg 9-12 by mouth ity of tablet 00:00: daily. [place] 00 [facility] irbesartan 2018-0 Yes 300mg Take 300 Un minesh 300 mg 9-12 mg by ity of tablet 00:00: mouth [place] 00 daily. Medical Branch clopidogrel 2018-0 Yes 75mg Take 75 mg Univers 75 mg 9-12 by mouth ity of tablet 00:00: daily. [address] Branch metoprolol 2018-0 Yes 50mg Take 50 mg U nivers succinate 9-12 by mouth ity of XL 50 mg 24 00:00: daily. [facility] s hr tablet [address] [place] [address] hydroCHLORO 2016- Yes 25mg Take 25 mg Univers thiazide 25 8-23 by mouth ity of mg tablet 00:00: daily. [address] Immunizations Ordered Filled Immunization Date Status Comments [facility] e Immunization Name Name zoster vaccine, 2022-10-04 Completed [facility] [employer] inactivated<sup>1</ 05:00:00 sup> influenza virus 2021-05-11 Completed [facility] Faustino vaccine, 00:00:00 inactivated [id number]-[facility] 2021-05-11 Completed [facility] RNA-1273vaxMODERNA 00:00:00 influenza virus 2021-05-11 Completed [facility] vaccine, 00:00:00 inactivated [id number]-OyJ-0BCUCN-19 2021-05-11 Completed [facility] RNA-1273vaxMODERNA 00:00:00 WMGM-XfU-2OPKFQ-19 2020-08-19 Completed [facility] [place] RNA-1273vaxMODERNA< 20:55:00 sup>1</sup> ZXLO-McB-5JBUHZ-19 2020-08-19 Completed [facility] RNA-1273vaxMODERNA< 20:55:00 sup>1</sup> DRTG-CvA-8LMXPO-19 2020-08-19 Completed [facility] [place] RNA-1273vaxMODERNA< 20:55:00 sup>2</sup> LLEM-AkV-7XPNSN-19 2020-07-25 Completed [facility] [place] RNA-1273vaxMODERNA 00:00:00 SKYJ-CvV-0WDAQJ-19 2020-07-25 Completed [facility] [place] RNA-1273vaxMODERNA 00:00:00 OUEM-MmM-4WHQQS-19 2020-07-22 Completed [facility] [place] RNA-1273vaxMODERNA< 22:23:00 sup>2</sup> DFWQ-TjW-0BDYXD-19 2020-07-22 Completed [facility] [place] RNA-1273vaxMODERNA< 22:23:00 sup>1</sup> PRXD-FxK-2UTFWX-19 2020-07-22 Completed [facility] [place] RNA-1273vaxMODERNA< 22:23:00 sup>1</sup> WPPO-QiO-0BHCPJ-19 2020-07-22 Completed [facility] [place] RNA-1273vaxMODERNA< 22:23:00 sup>2</sup> MWTW-YcN-7UPQID-19 2020-07-22 Completed [facility] [place] RNA-1273vaxMODERNA< 22:23:00 sup>3</sup> WSRM-AlO-0FLCGV-19 2020-07-22 Completed [facility] [place] RNA-1273vaxMODERNA 00:00:00 pneumococcal 2020-03-16 [facility] 23-valent 16:27:00 vaccine<sup>3</sup> pneumococcal 2020-03-16 Completed [facility] 23-valent 16:27:00 vaccine<sup>1</sup> pneumococcal 2020-03-16 Completed [facility] 23-valent 16:27:00 vaccine<sup>2</sup> pneumococcal 2020-03-16 Completed [facility] 23-valent 16:27:00 vaccine<sup>1</sup> pneumococcal 2020-03-16 [facility]pleted [facility] 23-valent 16:27:00 vaccine<sup>2</sup> pneumococcal 2020-03-16 Completed [facility] 23-valent 16:27:00 vaccine<sup>3</sup> pneumococcal 2020-03-16 [facility]pleted [facility] 23-valent 16:27:00 vaccine<sup>4</sup> pneumococcal 2019-09-14 Completed [facility] 13-valent 21:26:00 vaccine<sup>4</sup> pneumococcal 2019-09-14 [facility] 13-[facility]ent 21:26:00 vaccine<sup>5</sup> pneumococcal 2019-09-14 Completed [facility] 21:26:00 vaccine<sup>4</sup> pneumococcal 2019-09-14 Completed [facility] 13-[facility]ent 21:26:00 vaccine<sup>1</sup> pneumococcal 2019-09-14 Completed [facility] 21:26:00 vaccine<sup>2</sup> pneumococcal 2019-09-14 Completed [facility] 21:26:00 vaccine<sup>3</sup> pneumococcal 2019-09-14 Completed [facility] 13-[facility] 21:26:00 vaccine<sup>1</sup> pneumococcal 2019-09-14 Completed [facility] 13-[facility] 21:26:00 vaccine<sup>2</sup> pneumococcal 2019-09-14 Completed [facility] 13-valent 21:26:00 vaccine<sup>3</sup> Hx influenza 2018-05-14 Completed [facility] vaccine-unspecified 00:00:00 Hx influenza 2018-05-14 Completed [facility] vaccine-unspecified 00:00:00 Influenza High Dose 2018-05-04 Completed Unive rsity of 00:00:00 [facility] diphtheria/pertussi 2017-03-22 Completed [facility]endo[facility], acel/tetanus 00:00:00 adult diphtheria/pertussi 2017-03-22 Completed [facility] m[facility]za, acel/tetanus 00:00:00 adult Vital Signs Vital Name Observation Time Observation Value Comments Source Systolic blood 2022-07-26 21:11:00 130 mm[Hg] Univer sity of pressure [facility] Diastolic blood 2022-07-26 21:11:00 60 mm[Hg] Unive rsity of pressure [facility] Heart rate 2022-07-26 21:11:00 66 /min [facility] Respiratory rate 2022-07-26 21:11:00 18 /min [facility] Oxygen saturation in 2022-07-26 21:11:00 97 /min [facility] Arterial blood by [facility] Pulse oximetry [place] Body temperature 2022-07-26 18:04:00 36.17 Emperatriz [facility] Body height 2022-07-26 18:04:00 157.5 cm [facility] Body weight 2022-07-26 18:04:00 58.968 kg [facility] BMI 2022-07-26 18:04:00 23.78 kg/m2 [facility] Temperature Oral (F) 2023-02-17 14:19:00 98.6 F [facility] Heart Rate 2023-02-17 14:19:00 [facility] Systolic (mm Hg) 2023-02-17 14:19:00 [facility] Diastolic (mm Hg) 2023-02-17 14:19:00 [facility] [place] Height 2023-02-17 14:19:00 5 [ft_i] [facility] Weight 2023-02-17 14:19:00 [facility] BMI Calculated 2023-02-17 14:19:00 [facility] [place] Temperature Oral (F) 2022-11-13 19:55:00 98.3 F [facility] [place] Heart Rate 2022-11-13 19:55:00 [facility] [place] Systolic (mm Hg) 2022-11-13 19:55:00 [facility] Diastolic (mm Hg) 2022-11-13 19:55:00 [facility] Height 2022-11-13 19:55:00 5 [ft_i] [facility] Weight 2022-11-13 19:55:00 [facility] [place] BMI Calculated 2022-11-13 19:55:00 [facility] [place] Temperature Oral (F) 2022-09-18 15:38:00 98.6 F [facility] [place] Heart Rate 2022-09-18 15:38:00 [facility] Systolic (mm Hg) 2022-09-18 15:38:00 [facility] [place] Diastolic (mm Hg) 2022-09-18 15:38:00 [facility] [place] Height 2022-09-18 15:38:00 5 [ft_i] [facility] Weight 2022-09-18 15:38:00 [facility] [place] BMI Calculated 2022-09-18 15:38:00 [facility] Temperature Oral (F) 2022-03-06 13:32:00 98.5 F [facility] Heart Rate 2022-03-06 13:32:00 [facility] [place] Respitory Rate 2022-03-06 13:32:00 [facility] [place] Systolic (mm Hg) 2022-03-06 13:32:00 [facility] Diastolic (mm Hg) 2022-03-06 13:32:00 [facility] Height 2022-03-06 13:32:00 154.94 cm [facility] Weight 2022-03-06 13:32:00 [facility] BMI Calculated 2022-03-06 13:32:00 [facility] [place] Height 2022-02-09 13:01:00 154.94 cm [facility] [place] BMI Calculated 2022-02-09 13:01:00 [facility] Weight 2022-02-09 13:01:00 [facility] Systolic (mm Hg) 2022-02-09 13:01:00 [facility] [place] Diastolic (mm Hg) 2022-02-09 13:01:00 [facility] Heart Rate 2022-02-09 13:01:00 [facility] Respitory Rate 2022-02-09 13:01:00 [facility] Temperature Oral (F) 2022-02-09 13:01:00 97.8 F [facility] Temperature Oral (F) 2022-01-21 19:36:00 98.6 F [facility] [place] Heart Rate 2022-01-21 19:36:00 [facility] [place] Respitory Rate 2022-01-21 19:36:00 [facility] [place] Systolic (mm Hg) 2022-01-21 19:36:00 [facility] Diastolic (mm Hg) 2022-01-21 19:36:00 [facility] Height 2022-01-21 19:36:00 154.94 cm [facility] [place] Weight 2022-01-21 19:36:00 [facility] BMI Calculated 2022-01-21 19:36:00 [facility] [place] Temperature Oral (F) 2021-10-16 16:01:00 97.4 F [facility] [place] Heart Rate 2021-10-16 16:01:00 [facility] [place] Respitory Rate 2021-10-16 16:01:00 [facility] [place] Systolic (mm Hg) 2021-10-16 16:01:00 [facility] [place] Diastolic (mm Hg) 2021-10-16 16:01:00 [facility] [place] Height 2021-10-16 16:01:00 154.94 cm [facility] [place] Weight 2021-10-16 16:01:00 [facility] BMI Calculated 2021-10-16 16:01:00 [facility] Temperature Oral (F) 2021-07-26 17:06:00 97.9 F [facility] [place] Heart Rate 2021-07-26 17:06:00 [facility] Respitory Rate 2021-07-26 17:06:00 [facility] [place] Systolic (mm Hg) 2021-07-26 17:06:00 [facility] Diastolic (mm Hg) 2021-07-26 17:06:00 [facility] [place] Height 2021-07-26 17:06:00 154.94 cm [facility] [place] Weight 2021-07-26 17:06:00 [facility] BMI Calculated 2021-07-26 17:06:00 [facility] Systolic (mm Hg) 2020-09-12 20:27:00 [facility] [place] Diastolic (mm Hg) 2020-09-12 20:27:00 [facility] [place] Heart Rate 2020-09-12 20:27:00 [facility] Respitory Rate 2020-09-12 20:27:00 [facility] Temperature Oral (F) 2020-09-12 20:27:00 97.9 F [facility] [place] Height 2020-09-12 20:27:00 154.94 cm [facility] Weight 2020-09-12 20:27:00 [facility] BMI Calculated 2020-09-12 20:27:00 [facility] Systolic (mm Hg) 2020-08-16 15:49:00 [facility] Diastolic (mm Hg) 2020-08-16 15:49:00 [facility] [place] Heart Rate 2020-08-16 15:49:00 [facility] Respitory Rate 2020-08-16 15:49:00 [facility] [place] Temperature Oral (F) 2020-08-16 15:49:00 97.2 F [facility] Height 2020-08-16 15:49:00 157.48 cm [facility] [place] Weight 2020-08-16 15:49:00 [facility] [place] BMI Calculated 2020-08-16 15:49:00 [facility] [place] Systolic (mm Hg) 2020-03-16 15:45:00 [facility] [place] Diastolic (mm Hg) 2020-03-16 15:45:00 [facility] Heart Rate 2020-03-16 15:45:00 [facility] Respitory Rate 2020-03-16 15:45:00 [facility] Temperature Oral (F) 2020-03-16 15:45:00 98.4 F [facility] Height 2020-03-16 15:45:00 157.48 cm [facility] [place] Weight 2020-03-16 15:45:00 [facility] BMI Calculated 2020-03-16 15:45:00 [facility] Heart Rate 2019-09-14 20:42:00 [facility] [place] Respitory Rate 2019-09-14 20:42:00 [facility] [place] Temperature Oral (F) 2019-09-14 20:42:00 98.1 F [facility] [place] Height 2019-09-09 16:31:00 154.94 cm [facility] [place] Weight 2019-09-09 16:31:00 [facility] BMI Calculated 2019-09-09 16:31:00 [facility] [place] Systolic (mm Hg) 2019-09-09 16:31:00 [facility] Diastolic (mm Hg) 2019-09-09 16:31:00 [facility] [place] Heart Rate 2019-09-09 16:31:00 [facility] Respitory Rate 2019-09-09 16:31:00 [facility] [place] Temperature Oral (F) 2019-09-09 16:31:00 98.5 F [facility] [place] Heart Rate 2019-05-31 21:26:00 [facility] [place] Respitory Rate 2019-05-31 21:26:00 [facility] [place] Temperature Oral (F) 2019-05-31 21:26:00 98.2 F [facility] Height 2019-05-31 21:26:00 154.94 cm [facility] [place] Weight 2019-05-31 21:26:00 [facility] [place] BMI Calculated 2019-05-31 21:26:00 [facility] [place] Systolic (mm Hg) 2019-05-31 21:26:00 [facility] [place] Diastolic (mm Hg) 2019-05-31 21:26:00 [facility] Systolic (mm Hg) 2019-05-03 15:43:00 [facility] Diastolic (mm Hg) 2019-05-03 15:43:00 [facility] [place] Heart Rate 2019-05-03 15:43:00 [facility] Respitory Rate 2019-05-03 15:43:00 [facility] [place] Temperature Oral (F) 2019-05-03 15:43:00 98.3 F [facility] Height 2019-05-03 15:43:00 154.94 cm [facility] [place] Weight 2019-05-03 15:43:00 [facility] BMI Calculated 2019-05-03 15:43:00 [facility] Heart Rate 2018-09-08 14:44:00 [facility] [place] Systolic (mm Hg) 2018-09-08 14:44:00 [facility] [place] Diastolic (mm Hg) 2018-09-08 14:44:00 [facility] [place] BMI Calculated 2018-09-08 14:44:00 [facility] Weight 2018-09-08 14:44:00 [facility] [place] Height 2018-09-08 14:44:00 157.48 cm [facility] Temperature Oral (F) 2018-09-08 14:44:00 98.0 F [facility] Respitory Rate 2018-09-08 14:44:00 [facility] [place] Respitory Rate 2018-08-05 19:37:00 [facility] [place] Temperature Oral (F) 2018-08-05 19:37:00 98.1 F [facility] Heart Rate 2018-08-05 19:37:00 [facility] BMI Calculated 2018-08-05 19:37:00 [facility] Weight 2018-08-05 19:37:00 [facility] Height 2018-08-05 19:37:00 154.94 cm [facility] Systolic (mm Hg) 2018-08-05 19:37:00 [facility] [place] Diastolic (mm Hg) 2018-08-05 19:37:00 [facility] [place] Procedures Procedure Date / Time Performing Source Performed Clinician URINALYSIS 2022-07-26 [facility] 18:58:00 [facility] CT MAXILLOFACIAL/MANDIBLE WO 2022-07-26 [facility] Uni versity of CONTRAST 18:52:49 [facility] CT TRAUMA HEAD WO CONTRAST 2022-07-26 [facility] Unive rsity of 18:52:49 [facility] XR CHEST 1 VW 2022-07-26 [facility] 18:46:12 [facility] COMP. METABOLIC PANEL (75303) 2022-07-26 [facility] of 18:43:00 [facility] CBC WITH DIFF 2022-07-26 [facility] 18:43:00 [facility] PROTHROMBIN TIME / IN[facility] ACTIVATED PARTIAL THRMPLAS SALOME 2022-07-26 [facility] U niversity of 18:43:00 [facility] CONSENT/REFUSAL FOR DIAGNOSIS AND 2022-07-26 [facility] TREATMENT 18:03:34 Unassigned, No [facility] Esophagogastroduodenoscopy 2021-02-20 [facility] 05:00:00 Repair of rotator cuff of shoulder 2017-10-28 [facility] 05:00:00 Mammogram 2016-07-14 Gomez Harmon 00:00:00 Colonoscopy 2012-07-14 [facility] 00:00:00 Insertion of coronary artery stent 2008-07-14 [facility] 00:00:00 Biopsy of breast Gomez wallace Total hysterectomy [facility] theresa Plan of Care Planned Activity Planned Date Details Comments Source Future Scheduled 2023-02-15 [facility] Test 01:46:14 malignant neoplasm of colon (procedure) [code = 248956478] Future Scheduled 2023-02-15 [facility] Test 01:46:14 malignant neoplasm of colon (procedure) [code = 575431738] Future Scheduled 2023-02-15 [facility] Test 01:46:14 malignant neoplasm of colon (procedure) [code = 043584271] Future Scheduled 2023-02-15 COVID-19 VACCINE (#1) [facility] Test 01:46:14 [code = COVID-19 VACCINE (#1)] Future Scheduled 2023-02-15 [facility] 01:46:14 (procedure) [code = 827118149] Future Scheduled 2023-02-15 BREAST CANCER [facility] Test 01:46:14 SCREENING [code = BREAST CANCER SCREENING] Future Scheduled 2023-02-15 [facility] Test 01:46:14 malignant neoplasm of colon (procedure) [code = 480151970] Future Scheduled 2023-02-15 [facility] Test 01:46:14 malignant neoplasm of colon (procedure) [code = 646939676] Future Scheduled 2023-02-15 SHINGLES VACCINES (1 [facility] Test 01:46:14 of 2) [code = SHINGLES VACCINES (1 of 2)] Future Scheduled 2023-02-15 65+ [facility]OCOCCAL [facility] Test 01:46:14 VACCINE (1 - PCV) [code = 65+ PNEUMOCOCCAL VACCINE (1 - PCV)] Future Scheduled 2023-02-15 INFLUENZA VACCINE [facility] Test 01:46:14 [code = INFLUENZA VACCINE] Future Scheduled 2022-12-28 [facility] Test 04:59:32 malignant neoplasm of colon (procedure) [code = 501050354] Future Scheduled 2022-12-28 [facility] Test 04:59:32 malignant neoplasm of colon (procedure) [code = 230335778] Future Scheduled 2022-12-28 [facility] Test 04:59:32 malignant neoplasm of colon (procedure) [code = 680256254] Future Scheduled 2022-12-28 COVID-19 VACCINE (#1) [facility] Test 04:59:32 [code = COVID-19 VACCINE (#1)] Future Scheduled 2022-12-28 [facility] 04:59:32 (procedure) [code = 106120469] Future Scheduled 2022-12-28 BREAST CANCER [facility] Test 04:59:32 SCREENING [code = BREAST CANCER SCREENING] Future Scheduled 2022-12-28 [facility] Test 04:59:32 malignant neoplasm of colon (procedure) [code = 501755355] Future Scheduled 2022-12-28 [facility] Test 04:59:32 malignant neoplasm of colon (procedure) [code = 868068811] Future Scheduled 2022-12-28 SHINGLES VACCINES (1 [facility] 04:59:32 of 2) [code = SHINGLES VACCINES (1 of 2)] Future Scheduled 2022-12-28 65+ [facility] Test 04:59:32 VACCINE (1 - PCV) [code = 65+ PNEUMOCOCCAL VACCINE (1 - PCV)] Future Scheduled 2022-12-28 [facility]ENZA VACCINE [facility] Test 04:59:32 [code = INFLUENZA VACCINE] Future Scheduled 2022-12-28 [facility] Test 04:59:32 malignant neoplasm of colon (procedure) [code = 879561163] Future Scheduled 2022-12-28 [facility] Test 04:59:32 malignant neoplasm of colon (procedure) [code = 800114034] Future Scheduled 2022-12-28 [facility] Test 04:59:32 malignant neoplasm of colon (procedure) [code = 145345701] Future Scheduled 2022-12-28 COVID-19 VACCINE (#1) [facility] 04:59:32 [code = COVID-19 VACCINE (#1)] Future Scheduled 2022-12-28 [facility] 04:59:32 (procedure) [code = 315197142] Future Scheduled 2022-12-28 BREAST CANCER [facility] Test 04:59:32 SCREENING [code = BREAST CANCER SCREENING] Future Scheduled 2022-12-28 [facility] Test 04:59:32 malignant neoplasm of colon (procedure) [code = 070315249] Future Scheduled 2022-12-28 [facility] Test 04:59:32 malignant neoplasm of colon (procedure) [code = 543726768] Future Scheduled 2022-12-28 SHINGLES VACCINES (1 [facility] 04:59:32 of 2) [code = SHINGLES VACCINES (1 of 2)] Future Scheduled 2022-12-28 65+ [facility] Test 04:59:32 VACCINE (1 - PCV) [code = 65+ PNEUMOCOCCAL VACCINE (1 - PCV)] Future Scheduled 2022-12-28 [facility]ZA VACCINE [facility] Test 04:59:32 [code = INFLUENZA VACCINE] Future Scheduled 2022-10-12 65+ [facility]OCOCCAL [facility] 13:14:03 VACCINE (1 - PCV) [code = 65+ PNEUMOCOCCAL VACCINE (1 - PCV)] Future Scheduled 2022-10-12 [facility]ENZA VACCINE [facility] Test 13:14:03 [code = INFLUENZA VACCINE] Future Scheduled 2022-10-12 COVID-19 VACCINE (#1) [facility] Test 13:14:03 [code = COVID-19 VACCINE (#1)] Future Scheduled 2022-10-[address] C [address] [facility] Test 13:14:03 (procedure) [code = 317305964] Future Scheduled 2022-10-12 BREAST CANCER [facility] Test 13:14:03 SCREENING [code = BREAST CANCER SCREENING] Future Scheduled 2022-10-[address] [facility] Test 13:14:03 [code = COLONOSCOPY SCREENING] Future Scheduled 2022-10-12 SHINGLES VACCINES (1 Met [facility] Test 13:14:03 of 2) [code = SHINGLES VACCINES (1 of 2)] Future Scheduled 65+ PNEUMOCOCCAL [facility] Test VACCINE (1 of 2 - PPSV23) [code = 65+ PNEUMOCOCCAL VACCINE (1 of 2 - PPSV23)] Future Scheduled COVID-19 VACCINE (1) [facility] Test [code = COVID-19 VACCINE (1)] Future Scheduled Hepatitis C screening [facility] Test (procedure) [code = 162855138] Future Scheduled BREAST CANCER [facility] Test SCREENING [code = BREAST CANCER SCREENING] Future Scheduled COLONOSCOPY SCREENING [facility] Test [code = COLONOSCOPY SCREENING] Future Scheduled [facility]IN[facility] [code = SHINGLES VACCINES (#1)] Future Scheduled INFLUENZA VACCINE [facility] Test [code = INFLUENZA VACCINE] Encounters Start End Encounter Admission Attending Care Care Encounter Source Date/Time Date/Time Type Type Clinicians Facility Department ID 2023-03-27 2023-03-27 Outpatient JOSEF BAHENA [id number] [facility] 09:30:00 09:30:00 18 jackelyn Harmon 2023-02-17 2023-02-18 Outpatient JOSEF ANN [id number] [facility] 14:00:00 04:59:59 Primary 20 l Care Hayder mcfarlane 2023-02-17 2023-02-17 Outpatient MARISSA Dinh [facility] [id number] 09:00:00 23:59:59 Sayda R 20 2023-02-17 2023-02-17 Outpatient MHIE MHIE [id number] [facility] 09:00:00 09:00:00 20 jackelyn Harmon 2023-02-11 2023-02-12 Outpatient MHIE [facility] [id number] [facility] 17:12:00 04:59:00 [facility] 33 [facility] 2023-02-11 2023-02-11 Outpatient MAJMUNDAR, MHSE MHSE [id number] 12:12:00 23:59:00 [facility] 2023-02-11 2023-02-11 Outpatient Ramiladar, MHSE MHSE [id number] 12:12:00 23:59:00 Nhan Christina Efrain 2022-11-13 2022-11-14 Outpatient MHIE [facility] [id number] [facility] 19:45:00 04:59:59 Primary 19 l Chester Hayder Graves 2022-11-13 2022-11-13 Outpatient Fabrizio, MHMG [facility] [id number] 14:45:00 23:59:59 Sayda R 19 2022-11-13 2022-11-13 Outpatient MHIE MHIE [id number] [facility] 14:45:00 14:45:00 19 jackelyn Harmon 2022-10-16 2022-10-17 Between MHIE MHMG [id number] [facility] 13:35:31 13:35:31 Visit Primary 32 l Chester Graves 2022-10-16 2022-10-17 Outpatient MHMG [facility]MG [id number] 08:35:31 08:35:31 32 2022-09-18 2022-09-19 Outpatient MHIE [facility] [id number] [facility] 15:30:00 05:59:59 Primary 17 l Chester Graves 2022-09-18 2022-09-18 Outpatient Fabrizio, MHMG MHMG [id number] 09:30:00 23:59:59 Sayda R 17 2022-09-18 2022-09-18 Outpatient MHIE MHIE [id number] [facility] 09:30:00 09:30:00 17 jackelyn Harmon 2022-07-26 2022-07-26 Emergency X [facility] ERT [id number] Univers 12:00:00 15:24:00 , THEA ulloa [facility] 2022-07-26 2022-07-26 Emergency [facility] [id number] Univers 12:00:00 15:24:00 , Thea MOBILE [id number] i [facility] [id number] [facility] [id number] [place] [address] [place] 2022-03-08 2022-03-09 Between nullFlavo [facility]MG [id number] [facility] 13:41:46 13:41:46 Visit r Primary 31 l Chester Graves 2022-03-08 2022-03-09 Between nullFlavo [facility] [id number] [facility] 13:41:46 13:41:46 Visit r Primary 31 l Chester Graves 2022-03-08 2022-03-09 Outpatient MHMG MHMG [id number] 08:41:46 08:41:46 31 2022-03-06 2022-03-07 Outpatient nullFlavo [facility] [id number] [facility] 13:15:00 04:59:59 r Primary 16 l Care Hayder Graves 2022-03-06 2022-03-07 Outpatient nullFlavo [facility] [id number] Mem[facility] 13:15:00 04:59:59 r Primary 16 l Chester Graves 2022-03-06 2022-03-06 Outpatient Dinh, MHMG MHMG [id number] 08:15:00 23:59:59 Sayda R 16 2022-03-06 2022-03-06 Outpatient MHIE MHIE [id number] [facility] 08:15:00 08:15:00 16 jackelyn Harmon 2022-03-04 2022-03-05 Between nullFlavo [facility]MG [id number] [facility] 12:58:28 12:58:28 Visit r Primary 30 l Chester Graves 2022-03-04 2022-03-05 Between nullFlavo [facility] [id number] [facility] 12:58:28 12:58:28 Visit r Primary 30 l Care Hayder Graves 2022-03-04 2022-03-05 Outpatient MHMG MHMG [id number] 07:58:28 07:58:28 30 2022-02-19 2022-02-20 Between nullFlavo [facility] [id number] [facility] 12:25:41 12:25:41 Visit r Primary 29 l Care Hayder Graves 2022-02-19 2022-02-20 Between nullFlavo [facility] [id number] [facility] 12:25:41 12:25:41 Visit r Primary 29 l Care Hayder Graves 2022-02-19 2022-02-20 Outpatient MHMG MHMG [id number] 07:25:41 07:25:41 29 2022-02-09 2022-02-09 Emergency nullFlavo [employer] [facility] [id number] [facility] 12:59:42 13:50:00 r [facility] 28 l ([facility] [place] 2022-02-09 2022-02-09 Emergency [facility]Flavo [employer] [id number] [facility] 12:59:42 13:50:00 r [facility] 28 l ([facility]) [place] 2022-02-09 2022-02-09 Outpatient ROBBIN Grider [facility] [id number] 07:59:42 08:50:00 Anupam Toure 28 2022-02-09 2022-02-09 Emergency E SONIA GRIDERSE MHSE [id number] 07:59:00 08:50:00 ANUPAM [facility] 2022-02-03 2022-02-04 Between nullFlavo MG [id number] [facility] 19:43:53 19:43:53 Visit r Primary 27 l Care Hayder Graves 2022-02-03 2022-02-04 Between nullFlavo MHMG [id number] [facility] 19:43:53 19:43:53 Visit r Primary 27 l Care Hayder Graves 2022-02-03 2022-02-04 Outpatient MHMG MHMG [id number] 14:43:53 14:43:53 27 2022-02-01 2022-02-02 Outpt Diag nullFlavo [facility] [id number] Memoria 15:02:00 04:59:00 Services r Outpatient 06 l Imaging [facility] 2022-02-01 2022-02-02 Outpt Diag nullFlavo [facility] [id number] Memoria 15:02:00 04:59:00 Services r Outpatient 06 l Imaging [facility] 2022-02-01 2022-02-01 Outpatient Dinh, [id number]. [id number] 10:02:00 23:59:00 Sayda Luna [id number] 2022-01-29 2022-01-30 Between nullFlavo MG [id number] [facility] 16:58:17 16:58:17 Visit r Primary 26 l Care Hayder Graves 2022-01-29 2022-01-30 Between nullFlavo MG [id number] [facility] 16:58:17 16:58:17 Visit r Primary 26 l Care Hayder Graves 2022-01-29 2022-01-30 Outpatient MG MG [id number] 11:58:17 11:58:17 26 2022-01-28 2022-01-29 Between nullFlavo MG [id number] [facility] 13:35:17 13:35:17 Visit r Primary 25 l Care Hayder Graves 2022-01-28 2022-01-29 Between nullFlavo MG [id number] [facility] 13:35:17 13:35:17 Visit r Primary 25 l Care Hayder Graves 2022-01-28 2022-01-29 Outpatient MG MG [id number] 08:35:17 08:35:17 25 2022-01-24 2022-01-25 Between nullFlavo MG [id number] [facility] 19:14:47 19:14:47 Visit r Primary 24 l Care Hayder Graves 2022-01-24 2022-01-25 Between nullFlavo MG [id number] [facility] 19:14:47 19:14:47 Visit r Primary 24 l Care Hayder Graves 2022-01-24 2022-01-25 Outpatient MG [id number] 14:14:47 14:14:47 24 2022-01-21 2022-01-22 Outpatient nullFlavo [facility] [id number] Memoria 19:30:00 04:59:59 r Primary 15 l Care Hayder Graves 2022-01-21 2022-01-22 Outpatient nullFlavo [facility] [id number] Memoria 19:30:00 04:59:59 r Primary 15 l Care Hayder Graves 2022-01-21 2022-01-21 Outpatient Fabrizio, [facility] [id number] 14:30:00 23:59:59 Sayda R 15 2022-01-21 2022-01-[address] [facility] [id number] Memoria 14:30:00 14:30:00 15 l [place] 2021-11-01 2021-11-02 Between nullFlavo [facility] [id number] Memoria 21:07:50 21:07:50 Visit r Primary 23 l Care Hayder Graves 2021-11-01 2021-11-02 Between nullFlavo [facility] [id number] Memoria 21:07:50 21:07:50 Visit r Primary 23 l Care Hayder Graves 2021-11-01 2021-11-02 Outpatient [facility] [id number] 16:07:50 16:07:50 23 2021-11-01 2021-11-02 Outpt Diag nullFlavo [facility] [id number] Memoria 14:50:00 04:59:00 Services r Outpatient 05 l Imaging - [facility] 2021-11-01 2021-11-02 Outpt Diag nullFlavo [facility] [id number] Memoria 14:50:00 04:59:00 Services r Outpatient 05 l Imaging - [facility] 2021-11-01 2021-11-01 Outpatient Dinh, [id number] 09:50:00 23:59:00 Sayda R [id number] 2021-10-16 2021-10-17 Outpatient nullFlavo [facility] [id number] Memoria 16:00:00 04:59:59 r Primary 14 l Chester Graves 2021-10-16 2021-10-17 [place] [id number] Memoria 16:00:00 04:59:59 r Primary 14 l Chester Graves 2021-10-16 2021-10-16 Outpatient Fabrizio, MG MG [id number] 11:00:00 23:59:59 Sayda R 14 2021-10-16 2021-10-16 Outpatient MHIE MHIE [id number] Memoria 11:00:00 11:00:00 14 jackelyn CabreraFaustino 2021-07-31 2021-08-01 Between nullFlavo MG [id number] Memoria 14:05:35 14:05:35 Visit r Primary 22 l Chester Graves 2021-07-31 2021-08-01 Between nullFlavo MG [id number] Memoria 14:05:35 14:05:35 Visit r Primary 22 l Chester Graves 2021-07-31 2021-08-01 Outpatient MHMG MG [id number] 08:05:35 08:05:35 22 2021-07-26 2021-07-27 [place] [id number] Memoria 17:00:00 05:59:59 r Primary 13 l Chester Graves 2021-07-26 2021-07-27 [place] [id number] Memoria 17:00:00 05:59:59 r Primary 13 l Chester Graves 2021-07-26 2021-07-26 Outpatient Fabrizio, MG MG [id number] 11:00:00 23:59:59 Sayda R 13 2021-07-26 2021-07-26 Outpatient MHIE IE [id number] Memoria 11:00:00 11:00:00 13 jackelyn Harmon 2021-04-08 2021-04-08 Inpatient EM Mcdermott, IGNACIO AERS [id number] [facility] 18:18:00 22:50:00 Urbano Carrasco [facility] 2021-04-05 2021-04-07 Phone nullFlavo MG [id number] Memoria 19:53:52 04:59:59 Message r Primary 06 l Care Hayder Graves nn 2021-04-05 2021-04-07 Phone nullFlavo MG [id number] Memoria 19:53:52 04:59:59 Message r Primary 06 l Care Hayder Graves nn 2021-04-05 2021-04-06 Outpatient MHMG MG [id number] 14:53:52 23:59:59 06 2021-04-05 2021-04-06 Between nullFlavo MG [id number] Memoria 13:26:08 13:26:08 Visit r Primary 20 l Care Hayder Graves 2021-04-05 2021-04-06 Between nullFlavo MG [id number] Memoria 13:26:08 13:26:08 Visit r Primary 20 l Care Hayder Graves nn 2021-04-05 2021-04-06 Outpatient MG MG [id number] 08:26:08 08:26:08 2021-04-03 2021-04-04 Between nullFlavo MG [id number] Memoria 18:48:43 18:48:43 Visit r Primary 19 l Care Hayder Graves 2021-04-03 2021-04-04 Between nullFlavo MG [id number] Memoria 18:48:43 18:48:43 Visit r Primary 19 l Care Hayder Graves 2021-04-03 2021-04-04 Outpatient MG MG [id number] 13:48:43 13:48:43 2021-04-03 2021-04-04 Outpatient nullFlavo Urgent [id number] Memoria 21:30:00 04:59:59 r Care 12 l [place] Herm theresa 2021-04-03 2021-04-04 Outpatient nullFlavo Urgent [id number] Memoria 21:30:00 04:59:59 r Care 12 l [place] Herm theresa 2021-04-03 2021-04-04 [place] [id number] Memoria 20:00:00 04:59:59 r Primary 11 l Care Hayder Cabreraa 2021-04-03 2021-04-04 Outpatient nullFlavo [facility] [id number] Memoria 20:00:00 04:59:59 r Primary 11 l Care Hayder Graves 2021-04-03 2021-04-03 Outpatient VISIT, MHMG MG [id number] 16:30:00 23:59:59 NURSE UCFW 12 2021-04-03 2021-04-03 Outpatient Fabrizio, MHMG MG [id number] 15:00:00 23:59:59 Sayda R 11 2021-04-03 2021-04-03 Outpatient Dinh, MG MG [id number] 15:00:00 23:59:59 Sayda R 11 2021-04-03 2021-04-03 Outpatient MHIE MHIE [id number] Memoria 16:30:00 16:30:00 12 jackelyn Faustino 2021-04-03 2021-04-03 Outpatient MHIE IE [id number] Memoria 15:00:00 15:00:00 11 jackelyn Harmon 2021-01-06 2021-01-06 Refill [facility], 1.2.840.1 [id number] Methodi 00:00:00 00:00:[address] 3.430.2.7 Hospit a .3.565967 l .8 2020-09-19 2020-09-20 Between nullFlavo [facility] [id number] Memoria 19:16:44 19:16:44 Visit r Primary 18 l Chester Graves 2020-09-19 2020-09-20 Between nullFlavo MG [id number] Memoria 19:16:44 19:16:44 Visit r Primary 18 l Care Hayder Graves 2020-09-19 2020-09-20 Outpatient MG [facility] [id number] 13:16:44 13:16:44 18 2020-09-19 2020-09-20 Outpt Diag nullFlavo [facility] [id number] Memoria 15:53:00 05:59:00 Services r Outpatient 03 l [facility] 2020-09-19 2020-09-20 Outpt Diag nullFlavo [facility] [id number] Memoria 15:53:00 05:59:00 Services r Outpatient 03 l [facility] 2020-09-19 2020-09-19 Outpatient Fabrizio, 2.16.840. 2.16.840.1. 3 [id number] 09:53:00 23:59:00 Sayda Luna 1.322060. [id number] 03 3.615.108 5.108 2020-09-14 2020-09-15 Between nullFlavo MHMG [id number] Memoria 15:28:25 15:28:25 Visit r Primary 17 l Care Hayder Graves 2020-09-14 2020-09-15 Between nullFlavo [facility]MG [id number] Memoria 15:28:25 15:28:25 Visit r Primary 17 l Care Hayder Graves 2020-09-14 2020-09-15 Outpatient MHMG MHMG [id number] 09:28:25 09:28:25 17 2020-09-12 2020-09-13 [place] [id number] Memoria 20:30:00 05:59:59 r Primary 10 l Care Hayder Graves 2020-09-12 2020-09-13 Outpatient nullFlavo [facility] [id number] Memoria 20:30:00 05:59:59 r Primary 10 l Chester Graves 2020-09-12 2020-09-12 Outpatient Fabrizio, MG MHMG [id number] 14:30:00 23:59:59 Sayda Goncalves 2020-09-12 2020-09-12 Outpatient MHIE MHIE [id number] Memoria 14:30:00 14:30:00 10 jackelyn Harmon 2020-08-17 2020-08-18 Between nullFlavo MH[facility] [id number] Memoria 19:08:28 19:08:28 Visit r Primary 15 l Care Hayder Cabreraa 2020-08-17 2020-08-18 Between nullFlavo [facility]MG [id number] Memoria 19:08:28 19:08:28 Visit r Primary 15 l Care Hayder Graves 2020-08-17 2020-08-18 Outpatient MHMG MHMG [id number] 13:08:28 13:08:28 15 2020-08-16 2020-08-17 [place] [id number] Memoria 15:30:00 05:59:59 r Primary 09 l Chester Graves 2020-08-16 2020-08-17 [place] [id number] Memoria 15:30:00 05:59:59 r Primary 09 jackelyn Graves 2020-08-16 2020-08-16 Outpatient Dinh, MHMG MHMG [id number] 09:30:00 23:59:59 Sayda R 09 2020-08-16 2020-08-16 Outpatient MHIE MHIE [id number] Memoria 09:30:00 09:30:00 09 jackelyn Harmon 2020-05-22 2020-05-24 Phone nullFlavo MHMG [id number] Memoria 16:53:39 05:59:59 Message r Primary 05 l Chester Graves 2020-05-22 2020-05-24 Phone nullFlavo MHMG [id number] Memoria 16:53:39 05:59:59 Message r Primary 05 l Chester Graves 2020-05-22 2020-05-23 Outpatient MHMG MHMG [id number] 10:53:39 23:59:59 05 2020-03-16 2020-03-17 [place] [id number] Memoria 15:30:00 04:59:59 r Primary 05 l Chester Graves 2020-03-16 2020-03-17 [place] [id number] Memoria 15:30:00 04:59:59 r Primary 05 l Chester Graves 2020-03-16 2020-03-16 Outpatient Dinh, MHMG MHMG [id number] 10:30:00 23:59:59 Sayda 05 2020-03-16 2020-03-16 Outpatient MHIE MHIE [id number] Memoria 10:30:00 10:30:00 05 jackelyn Harmon 2020-02-21 2020-02-23 Phone nullFlavo MHMG [id number] Memoria 16:13:36 04:59:59 Message r Primary 04 l Chester Graves 2020-02-21 2020-02-23 Phone nullFlavo MHMG [id number] Memoria 16:13:36 04:59:59 Message r Primary 04 l Chester Graves 2020-02-21 2020-02-22 Outpatient MHMG MHMG [id number] 11:13:36 23:59:59 04 2020-02-08 2020-02-08 Outpatient MHIE MHIE [id number] Memoria 13:30:00 13:30:00 07 [facility] 2020-02-08 2020-02-08 Outpatient MHIE MHIE [id number] Memoria 13:30:00 13:30:00 08 [facility] 2020-02-08 2020-02-08 Outpatient MHIE MHIE [id number] Memoria 13:30:00 13:30:00 07 [facility] 2020-02-08 2020-02-08 Outpatient MHIE MHIE [id number] Memoria 13:30:00 13:30:00 08 jackelyn [place] 2019-09-14 2019-09-16 Phone nullFlavo MHMG [id number] Memoria 21:29:58 05:59:59 Message r Primary 02 l Chester Graves 2019-09-14 2019-09-16 Phone nullFlavo MHMG [id number] Memoria 21:29:58 05:59:59 Message r Primary 02 l Chester Graves 2019-09-14 2019-09-15 Outpatient MHMG MHMG [id number] 15:29:58 23:59:59 02 2019-09-14 2019-09-15 Outpatient nullFlavo MHMG [id number] Memoria 20:30:00 05:59:59 r Primary 06 l Chester Graves 2019-09-14 2019-09-15 Outpatient nullFlavo [facility] [id number] Memoria 20:30:00 05:59:59 r Primary 06 l Chester Graves 2019-09-14 2019-09-14 Outpatient VISIT, MHMG MHMG [id number] 14:30:00 23:59:59 NURSE AVN 06 2019-09-14 2019-09-14 Outpatient MHIE MHIE [id number] Memoria 14:30:00 14:30:00 06 jackelyn Faustino 2019-09-10 2019-09-11 Between nullFlavo [facility] [id number] Memoria 15:36:23 15:36:23 Visit r Primary 08 l Care Hayder Graves 2019-09-10 2019-09-11 Between nullFlavo [facility] [id number] Memoria 15:36:23 15:36:23 Visit r Primary 08 l Care Hayder Graves 2019-09-10 2019-09-11 Outpatient MHMG MG [id number] 09:36:23 09:36:23 08 2019-09-09 2019-09-10 [place] [id number] Memoria 16:30:00 05:59:59 r Primary 04 l Care Hayder Graves 2019-09-09 2019-09-10 [place] [id number] Memoria 16:30:00 05:59:59 r Primary 04 l Care Hayder Graves 2019-09-09 2019-09-09 Outpatient Dinh, [facility] [id number] 10:30:00 23:59:59 Sayda 04 2019-09-09 2019-09-09 Outpatient MHIE IE [id number] Memoria 10:30:00 10:30:00 04 l [place] 2019-08-18 2019-08-19 Outpt Diag nullFlavo [facility] [id number] Memoria 17:09:00 05:59:00 Services r Outpatient 02 l Imaging - Jannletty Ayon [facility] 2019-08-18 2019-08-19 Outpt Diag nullFlavo [facility] [id number] Memoria 17:09:00 05:59:00 Services r Outpatient 02 l Imaging - Jann n Gabo [facility] 2019-08-18 2019-08-18 Outpatient Fabrizio, 2.16.840. 2.16.840.1. 3 [id number] 11:09:00 23:59:00 Sayda [id number]. [id number] 02 3.615.108 5.108 2019-05-31 2019-06-01 Outpatient nullFlavo [facility] [id number] Memoria 21:30:00 05:59:59 r Primary 03 l Care Hayder Graves 2019-05-31 2019-06-01 Outpatient nullFlavo [facility] [id number] Memoria 21:30:00 05:59:59 r Primary 03 jackelyn Graves 2019-05-31 2019-05-31 Outpatient Fabrizio MHMG MHMG [id number] 15:30:00 23:59:59 Sayda 2019-05-31 2019-05-31 Outpatient MHIE MHIE [id number] Memoria 15:30:00 15:30:00 03 jackelyn CabreraFaustino 2019-05-03 2019-05-04 Outpatient nullFlavo [facility] [id number] Memoria 15:30:00 04:59:59 r Primary 02 jackelyn Graves 2019-05-03 2019-05-04 Outpatient nullFlavo [facility] [id number] Memoria 15:30:00 04:59:59 r Primary 02 jackelyn Graves 2019-05-03 2019-05-03 Outpatient Fabrizio MG MHMG [id number] 10:30:00 23:59:59 Sayda 2019-05-03 2019-05-03 Outpatient MHIE MHIE [id number] Memoria 10:30:00 10:30:00 02 jackelyn Harmon 2019-03-17 2019-03-19 Phone nullFlavo MHMG [id number] Memoria 13:42:20 04:59:59 Message r Primary 01 jackelyn Graves 2019-03-17 2019-03-19 Phone nullFlavo MHMG [id number] Memoria 13:42:20 04:59:59 Message r Primary 01 l Chester Graves 2019-03-17 2019-03-18 Outpatient MHMG MHMG [id number] 08:42:20 23:59:59 2018-11-09 2018-11-11 Phone nullFlavo MHMG [id number] Memoria 21:24:25 04:59:59 Message r Primary 00 jackelyn Graves 2018-11-09 2018-11-11 Phone nullFlavo MHMG [id number] Memoria 21:24:25 04:59:59 Message r Primary 00 jackelyn Graves 2018-11-09 2018-11-10 Outpatient MHMG MHMG [id number] 16:24:25 23:59:59 2018-09-16 2018-09-17 Between nullFlavo MHMG [id number] Memoria 23:02:17 23:02:17 Visit r Primary 04 l Care Hayder Graves 2018-09-16 2018-09-17 Between nullFlavo MG [id number] Memoria 23:02:17 23:02:17 Visit r Primary 04 l Care Hayder Graves 2018-09-16 2018-09-17 Outpatient MG MG [id number] 17:02:17 17:02:17 04 2018-09-16 2018-09-17 Outpt Diag nullFlavo [facility] [id number] Memoria 15:52:00 05:59:00 Services r Outpatient 01 l Imaging Kin Forte n Gabo Franciscos 2018-09-16 2018-09-17 Outpt Diag nullFlavo [facility] [id number] Memoria 15:52:00 05:59:00 Services r Outpatient 01 l Alanna Franciscos 2018-09-16 2018-09-16 Outpatient Fabrizio, 2.16.840. 2.16.840.1. 3 [id number] 09:52:00 23:59:00 Sayda 1.702265. [id number] 01 3.615.108 5.108 2018-09-09 2018-09-10 Between nullFlavo MG [id number] Memoria 16:05:13 16:05:13 Visit r Primary 03 l Chester Graves 2018-09-09 2018-09-10 Between nullFlavo MG [id number] Memoria 16:05:13 16:05:13 Visit r Primary 03 l Care Hayder Graves 2018-09-09 2018-09-10 Outpatient MG MG [id number] 10:05:13 10:05:13 03 2018-09-08 2018-09-09 [place] [id number] Memoria 14:30:00 05:59:59 r Primary 01 l Care Hayder Graves 2018-09-08 2018-09-09 [place] [id number] Memoria 14:30:00 05:59:59 r Primary 01 l Care Hayder Graves 2018-09-08 2018-09-08 Outpatient Fabrizio, MG MG [id number] 08:30:00 23:59:59 Sayda 2018-09-08 2018-09-08 Outpatient MHIE IE [id number] Memoria 08:30:00 08:30:00 01 l Faustino 2018-08-12 2018-08-13 Outpt Diag nullFlavo [facility] [id number] Memoria 15:31:00 05:59:00 Services r Outpatient 00 l Imaging - [facility] 2018-08-12 2018-08-13 Outpt Diag nullFlavo [facility] [id number] Memoria 15:31:00 05:59:00 Services r Outpatient 00 l Imaging - Jann n Gabo [facility] 2018-08-12 2018-08-12 Outpatient Dinh, 2.16.840. 2.16.840.1. 3 [id number] 09:31:00 23:59:00 Sayda 1.502913. [id number] 00 3.615.108 5.108 2018-08-12 2018-08-12 Outpatient Dinh, 2.16.840. 2.16.840.1. 3 [id number] 09:31:00 23:59:00 Sayda 1.545579. [id number] 00 3.615.108 5.108 2018-08-05 2018-08-06 Outpatient nullFlavo [facility] [id number] Memoria 19:30:00 05:59:59 r Primary 00 l Care Hayder Graves 2018-08-05 2018-08-06 Outpatient nullFlavo [facility] [id number] Memoria 19:30:00 05:59:59 r Primary 00 l Care Hayder Graves 2018-08-05 2018-08-05 Outpatient Dinh, [facility] [id number] 13:30:00 23:59:59 Sayda 2018-08-05 2018-08-05 Outpatient Dinh, [facility] [id number] 13:30:00 23:59:59 Sayda 2018-08-05 2018-08-05 Outpatient MHIE IE [id number] Memoria 13:30:00 13:30:00 00 jackelyn Harmon 2018-02-20 2018-03-22 OP Therapy nullFlavo [facility] [id number] Memoria 15:13:00 04:59:00 Patients r [facility] 04 [facility] 2018-02-20 2018-03-22 OP Therapy nullFlavo S[facility] Hayder [id number] Memoria 15:13:00 04:59:00 Patients r [facility] 04 [facility] 2018-02-20 2018-03-21 Outpatient Ferguson, 2.16.840. 2.16.840.1. 3 [id number] 10:13:00 23:59:00 Marycruz 1.755321. [id number] 04 Grady 3.615.38 5.38 2018-01-09 2018-02-08 OP Therapy nullFlavo S[facility] Hayder [id number] Memoria 14:00:00 04:59:00 Patients r [facility] 03 [facility] 2018-01-09 2018-02-08 OP Therapy nullFlavo SMR Hayder [id number] Memoria 14:00:00 04:59:00 Patients r [facility] 03 [facility] 2018-01-09 2018-02-07 Outpatient Ferguson, 2.16.840. 2.16.840.1. 3 [id number] 09:00:00 23:59:00 Marycruz 1.898598. 646310.3.61 03 Grady 3.615.38 5.38 2017-12-09 2018-01-08 OP Therapy nullFlavo SMR Hayder [id number] Memoria 14:00:00 04:59:00 Patients r [facility] 02 [facility] 2017-12-09 2018-01-08 OP Therapy nullFlavo SMR Hayder [id number] Memoria 14:00:00 04:59:00 Patients r [facility] 02 [facility] 2017-12-09 2018-01-07 Outpatient Ferguson, 2.16.840. 2.16.840.1. 3 [id number] 09:00:00 23:59:00 Marycruz 1.265225. [id number] 02 Grady 3.615.38 5.38 2017-11-05 2017-12-05 OP Therapy nullFlavo SMR Hayder [id number] Memoria 14:49:00 04:59:00 Patients r [facility] 01 [facility] 2017-11-05 2017-12-05 OP Therapy nullFlavo [facility] [id number] Memoria 14:49:00 04:59:00 Patients r [facility] 01 l Faustino 2017-11-05 2017-12-04 Outpatient Ferguson, 2.16.840. 2.16.840.1. 3 [id number] 09:49:00 23:59:00 Marycruz 1.144284. [id number] 01 Grady 3.615.38 5.38 Results Test Description Test Time Test Comments Results Result Comments Source RADRPT 2023-02-12 10:58:00 Test Item Value Reference Range Interpretation Comme nts RADRPT (test code = RADRPT) Radiation Dose CTDIVOL = 0 (mGy): DLP = 1071.3 (mGy-cm)PROCEDURE INFORMATION: Exam: CT Head Without Contrast Exam date and time: 02/11/2023 12:38 PM Age: 77 years old Clinical indication: /g31.84 TECHNIQUE: Imaging protocol: Computed tomography of the head without contrast. Radiation optimization: All CT scans at this facility use at least one of these dose optimization techniques: automated exposure control; mA and/or kV adjustment per patient size (includes targeted exams where dose is matched to clinical indication); or iterative reconstruction. REPORTING DATA: Count of CT and Cardiac NM exams in prior 12 months: This patient has received 0 known CTs and 0 known cardiac nuclear medicine studies in the 12 months prior to the current study. COMPARISON: NECK SOFT TISSUE W CONTRAST CT 02/01/2022 11:22 AM RADIATION DOSE METRICS: Total DLP (mGy-cm): 1071.3 FINDINGS: Brain: There is no evidence of acute intracranial hemorrhage, subacute territorial infarct, mass effect or midline shift. No extra-axial fluid collection. Please note that acute infarcts can be occult on CT scan. There is mild generalized volume loss.There are mild hypodensities in the white matter suggestive of chronic small vessel ischemic changes in this age. There are atheromatous calcifications in the intracranial ICAs and vertebral arteries. Old lacunar insults in the lenticular capsular region. Cerebral ventricles: Unremarkable for age. Paranasal sinuses: Visualized sinuses are unremarkable. No fluid levels. Mastoid air cells: Visualized mastoid air cells are well aerated. Bones/joints: Unremarkable. No acute fracture. Soft tissues: Unremarkable. IMPRESSION: 1. No evidence of acute intracranial process. 2. Mild volume loss without lobar predominance. 3. Mild chronic microangiopathy. 4. Old lacunar insults in the lenticulocapsular regions. COMMENTS: If there is a concern for acute intracranial process and/or persistent symptoms, emergent assessment with MRI or CTA is recommended. Carla Keating MD On 02/12/2023 05:56:47; [id number] [facility] [id number] 20:36:44 Test Item Value Reference Range Interpretation Comments APTT Patient (test See_Comment [Automat ed code = 3173-2) message] The system which generated this result transmitted reference range : 23 - 38 Seconds . The reference range was not used to interpr et this result as normal/abnormal . DOROTEO (test code = DOROTEO) The [facility] patient population mean normal value for aPTT is 30 seconds. Lab Interpretation Normal (test code = 30191-7) [facility] [id number] 20:34:41 Test Item Value Reference Range Interpretation Comments PROTIME PATIENT (test See_Comment [Auto mated message] code = 5964-2) The system wh ich generated this result transmitted ref erence range: 12.0 - 1 4.7 Seconds. The re ference range was not u sed to interpret this result as normal/abnor mal. INR (test code = 6301-6) Nor mal INR <1.1; Warfarin Therap eutic range 2.0 to 3. 0 or 2.5 to 3.5, dep ending upon the indica tions. Lab Interpretation (test Normal code = 87764-3) [facility] (12427)2022-07-26 19:18:32 Test Item Value Reference Range Interpretation Comments NA (test code = 137 mmol/L 135-145 3357739130) K (test code = 4.5 mmol/L 3.5-5.0 3461257307) CL (test code = 101 mmol/L 98-108 7028434252) CO2 TOTAL (test code = 28 mmol/L 23-31 2679569898) AGAP (test code = 2-16 5328360071) BUN (test code = 21 mg/dL 7-23 9008691027) GLUCOSE (test code = 133 mg/dL 70-110 H 9763759653) CREATININE (test code = 0.92 mg/dL 0.50-1.04 8091758320) TOTAL BILI (test code = 0.6 mg/dL 0.1-1.5 2037623611) CALCIUM (test code = 9.3 mg/dL 8.6-10.6 0963362917) T PROTEIN (test code = 7.0 g/dL 6.3-8.2 1457995823) ALBUMIN (test code = 4.4 g/dL 3.5-5.0 5247523147) ALK PHOS (test code = 108 U/L 34-122 5635802226) ALTv (test code = 22 U/L 5-35 2-6) AST(SGOT) (test code = 33 U/L 13-40 5464154427) eGFR (test code = mL/min/1.73m2 3055930306) DOROTEO (test code = DOROTEO) Association of Glomerular Filtration Rate (GFR) and Staging of Kidney Disease* + --+ --+ ------+| GFR (mL/min/1.73 m2) ?| With Kidney Damage ?| ?Without Kidney Damage+ --------+ --------+ +| ?>90 ?| ?Stage one ?| ? Normal ?+ ---+ ---+ -------+| ?60-89 ?| ?Stage two ?| ? Decreased GFR ? + --+ --+ ------+| ?30-59 ?| ?Stage three ?| ? Stage three ? + --+ --+ ------+| ?15-29 ?| ?Stage four ? | ? Stage four ?+ ---+ ---+ -------+| ?<15 (or dialysis) ? ?| ?Stage five ? | ? Stage five ?+ ---+ ---+ -------+ *Each stage assumes the associated GFR level has been in effect for at least three months. ?Stages 1 to 5, with or without kidney disease, indicate chronic kidney disease. Notes: Determination of stages one and two (with eGFR >59mL/min/1.73 m2) requires estimation of kidney damage for at least three months as defined by structural or functional abnormalities of the kidney, manifested by either:Pathological abnormalities or Markers of kidney damage (including abnormalities in the composition of the blood or urine or abnormalities in imaging tests). Lab Interpretation Abnormal (test code = 11459-9) General acute hospital WITH [id number] 19:17:31 Test Item Value Reference Range Interpretation Comments WBC (test code = See_Comment [Automated 6690-2) message] The sy stem which generated this result transmitted reference range : 4.30 - 11.10 10*3/?L. The reference range was not used to interpret this result as normal/abnormal . RBC (test code = See_Comment [Automated 789-8) message] The sy stem which generated this result transmitted reference range : 3.93 - 5.25 10*6/?L. The reference range was not used to interpret this result as normal/abnormal . HGB (test code = 11.3 g/dL 11.6-15.0 L 718-7) HCT (test code = 36.0 % 35.7-45.2 4544-3) MCV (test code = 88.2 fL 80.6-95.5 787-2) MCH (test code = 27.7 pg 25.9-32.8 785-6) MCHC (test code = 31.4 g/dL 31.6-35.1 L 786-4) RDW-SD (test code = 42.7 fL 39.0-49.9 35153-6) RDW-CV (test code = 13.2 % 12.0-15.5 788-0) PLT (test code = See_Comment [Automated 777-3) message] The sy stem which generated this result transmitted reference range : 166 - 358 10*3/ ?L. The reference r vinh was not used to interpret this result as normal/abnormal . MPV (test code = 11.3 fL 9.5-12.9 79584-0) NRBC/100 WBC (test See_Comment [Automat ed code = 8512635252) message] The system which generated this result transmitted reference range : 0.0 - 10.0 /100 WBCs. The refer ence range was not u sed to interpret th is result as normal/abnormal . NRBC x10^3 (test code See_Comment [Auto mated = 5739757069) message] The s ystem which generated this result transmitted reference range : 10*3/?L. The reference range was not used to interpret this result as normal/abnormal . GRAN MAT (NEUT) % 67.6 % (test code = 770-8) IMM GRAN % (test code 0.40 % = 8474554479) LYMPH % (test code = 23.2 % 736-9) MONO % (test code = 6.8 % 5905-5) EOS % (test code = 1.4 % 713-8) BASO % (test code = 0.6 % 706-2) GRAN MAT x10^3(ANC) 6.65 10*3/uL 1.88-7.09 (test code = 1246260305) IMM GRAN x10^3 (test 0.04 10*3/uL 0.00-0.06 code = 5957611552) LYMPH x10^3 (test code 2.29 10*3/uL 1.32-3.29 = 731-0) MONO x10^3 (test code 0.67 10*3/uL 0.33-0.92 = 742-7) EOS x10^3 (test code = 0.14 10*3/uL 0.03-0.39 711-2) BASO x10^3 (test code 0.06 10*3/uL 0.01-0.07 = 704-7) Lab Interpretation Abnormal (test code = 70475-3) [facility]2022-08-24 13:52:00 Test Item Value Reference Range Interpretation Comments Sed Rate (test code = Sed Rate) 41 [id number] 13:52:00 Test Item Value Reference Range Interpretation Comments RF Qnt (test code = RF Qnt) no gt [facility] CampusWzmysbuZIJNYSZZMX3552-65-25 13:52:00 Test Item Value Reference Range Interpretation Comments DOMENIC (test code = DOMENIC) NEGATIVE [facility] CampusIrguhqyATMVMQKUIY7348-36-61 13:52:00 Test Item Value Reference Range Interpretation Comments C-REACTIVE PROTEIN (test code = 30.6 C-REACTIVE PROTEIN) [facility]coPTBANG[facility]UJZ3009-[facility]-21 13:52:00 Test Item Value Reference Range Interpretation Comments Sed Rate (test code = Sed Rate) 41 [facility] CampusRjpthyyNSWXRWZIUG6819-36-20 13:52:00 Test Item Value Reference Range Interpretation Comments RF Qnt (test code = RF Qnt) no gt [facility]SnnqbpaPMNWDTSSRF7915-41-42 13:52:00 Test Item Value Reference Range Interpretation Comments DOMENIC (test code = DOMENIC) NEGATIVE [place] 456232-08-24 13:52:00 Test Item Value Reference Range Interpretation Comments C-REACTIVE PROTEIN (test code = 30.6 C-REACTIVE PROTEIN) [facility]2022-01-14 14:54:00 Test Item Value Reference Range Interpretation Comments Glucose Lvl (test code = Glucose Lvl) 92 65-99 [place] 144582-01-14 14:54:00 Test Item Value Reference Range Interpretation Comments BUN (test code = BUN) 14 7-25 [place] 144582-01-14 14:54:00 Test Item Value Reference Range Interpretation Comments Creatinine Lvl (test code = Creatinine 0.59 0.60-0.93 Lvl) [facility]2022-01-14 14:54:00 Test Item Value Reference Range Interpretation Comments eGFR NON-AFR. BURMESE (test code = 90 eGFR NON-AFR. BURMESE) [facility]2022-01-14 14:54:00 Test Item Value Reference Range Interpretation Comments eGFR (test code = eGFR 105 ) [facility]2022-01-14 14:54:00 Test Item Value Reference Range Interpretation Comments B/C Ratio (test code = B/C Ratio) 24 6-22 [facility]2022-01-14 14:54:00 Test Item Value Reference Range Interpretation Comments Sodium Lvl (test code = Sodium Lvl) 142 135-146 [facility]2022-01-14 14:54:00 Test Item Value Reference Range Interpretation Comments Potassium Lvl (test code = Potassium 4.2 3.5-5.3 Lvl) [facility]2022-01-14 14:54:00 Test Item Value Reference Range Interpretation Comments Chloride Lvl (test code = Chloride Lvl) 100 98-110 [place] 144582-01-14 14:54:00 Test Item Value Reference Range Interpretation Comments CO2 (test code = CO2) 32 20-32 [place] 144582-01-14 14:54:00 Test Item Value Reference Range Interpretation Comments Calcium Lvl (test code = Calcium Lvl) 9.8 8.6-10.4 [place] 144582-01-14 14:54:00 Test Item Value Reference Range Interpretation Comments Total Protein (test code = Total 7.1 6.1-8.1 Protein) [place] 144582-01-14 14:54:00 Test Item Value Reference Range Interpretation Comments Albumin Lvl (test code = Albumin Lvl) 4.3 3.6-5.1 [place] 144582-01-14 14:54:00 Test Item Value Reference Range Interpretation Comments Globulin (test code = Globulin) 2.8 1.9-3.7 [place] 144582-01-14 14:54:00 Test Item Value Reference Range Interpretation Comments A/G Ratio (test code = A/G Ratio) 1.5 1.0-2.5 [place] 144582-01-14 14:54:00 Test Item Value Reference Range Interpretation Comments Bili Total (test code = Bili Total) 0.6 0.2-1.2 [place] 144582-01-14 14:54:00 Test Item Value Reference Range Interpretation Comments Alk Phos (test code = Alk Phos) 113 37-153 [facility]2022-01-14 14:54:00 Test Item Value Reference Range Interpretation Comments ASPARTATE TRANSAMINASE (test code = 27 10-35 ASPARTATE TRANSAMINASE) [place] 144582-01-14 14:54:00 Test Item Value Reference Range Interpretation Comments ALANINE AMINOTRANSFERASE (test code = 22 6-29 ALANINE AMINOTRANSFERASE) [place] 544572-01-14 14:54:00 Test Item Value Reference Range Interpretation Comments WBC X 10x3 (test code = WBC X 10x3) 6.6 3.8-10.8 [place] 544572-01-14 14:54:00 Test Item Value Reference Range Interpretation Comments RBC X 10x6 (test code = RBC X 10x6) 4.51 3.80-5.10 [place] 544572-01-14 14:54:00 Test Item Value Reference Range Interpretation Comments Hgb (test code = Hgb) 12.9 11.7-15.5 [place] 27[address]-01-14 14:54:00 Test Item Value Reference Range Interpretation Comments Hct (test code = Hct) 38.9 35.0-45.0 [place] 544572-01-14 14:54:00 Test Item Value Reference Range Interpretation Comments MCV (test code = MCV) 86.3 80.0-100.0 [place] 544572-01-14 14:54:00 Test Item Value Reference Range Interpretation Comments MCH (test code = MCH) 28.6 pg 27.0-33.0 [place] 544572-01-14 14:54:00 Test Item Value Reference Range Interpretation Comments MCHC (test code = MCHC) 33.2 32.0-36.0 [place] 544572-01-14 14:54:00 Test Item Value Reference Range Interpretation Comments RDW (test code = RDW) 12.6 11.0-15.0 [place] 544572-01-14 14:54:00 Test Item Value Reference Range Interpretation Comments Platelet (test code = Platelet) 254 140-400 [facility] NorthwestPehrmirSXFBCYARWC0631-46-25 14:54:00 Test Item Value Reference Range Interpretation Comments MPV (test code = MPV) 10.6 7.5-12.5 [place] 544572-01-14 14:54:00 Test Item Value Reference Range Interpretation Comments Neutrophils # (test code = Neutrophils 4277 7720-8939 #) [facility] NorthwestRnkpkbjIGUGWQLJVD1648-44-66 14:54:00 Test Item Value Reference Range Interpretation Comments Lymphocytes # (test code = Lymphocytes 8326 537-4011 #) [facility] NorthwestEqwldxzNVOBKJSHVT9272-08-85 14:54:00 Test Item Value Reference Range Interpretation Comments Monocytes # (test code = Monocytes #) 482 200-950 [place] 544572-01-14 14:54:00 Test Item Value Reference Range Interpretation Comments Eosinophils # (test code = Eosinophils 119 15-500 #) [facility] NorthwestOmgmtmoUSKQPNHYYK9426-99-73 14:54:00 Test Item Value Reference Range Interpretation Comments Basophils # (test code 33 See_Comment [Aut omated message] The = Basophils #) system which generated this result tra nsmitted reference range : <=200. The reference r vinh was not used to int erpret this result as normal/abnormal . [facility]DPVOJJXLJ0020-[facility]-68 14:54:00 Test Item Value Reference Range Interpretation Comments Segs (test code = Segs) 64.8 [facility] HospitalRnzjbuoHYOTMQBLJM4707-52-06 14:54:00 Test Item Value Reference Range Interpretation Comments Lymphocytes (test code = Lymphocytes) 25.6 [facility] HospitalHvaisokRYBDZKALOC0748-44-38 14:54:00 Test Item Value Reference Range Interpretation Comments Monocytes (test code = Monocytes) 7.3 [facility] CampusUhbopeyFNHUSSMMUK4372-69-60 14:54:00 Test Item Value Reference Range Interpretation Comments Eosinophils (test code = Eosinophils) 1.8 [facility] CampusWnwcpxoNHFNJDBFDH2796-01-71 14:54:00 Test Item Value Reference Range Interpretation Comments Basophils (test code = Basophils) 0.5 [facility] CampusObvygrxSRQRQE0493-09-55 14:54:00 Test Item Value Reference Range Interpretation Comments Chol (test code = Chol) 155 [facility] CampusKvjxzhtZGEFBH2293-20-57 14:54:00 Test Item Value Reference Range Interpretation Comments HDL (test code = HDL) 57 [facility] CampusZhekwaaIFNACN1073-55-28 14:54:00 Test Item Value Reference Range Interpretation Comments Trig (test code = Trig) 125 [facility] CampusOtevxypGVXUVA6699-19-14 14:54:00 Test Item Value Reference Range Interpretation Comments LDL (Calculated) (test code = LDL 77 (Calculated)) [facility] CampusEcgwfdfMZNMRL7367-35-69 14:54:00 Test Item Value Reference Range Interpretation Comments CHD Risk (test code = CHD Risk) 2.7 [facility] CampusOhzfjqnOFLGWL1555-15-21 14:54:00 Test Item Value Reference Range Interpretation Comments Non HDL Chol (test code = Non HDL Chol) 98 [facility] RHHARDMGS8024-67-35 14:54:00 Test Item Value Reference Range Interpretation Comments Hgb A1C (test code = Hgb A1C) 5.6 [facility] Campuscafegive SWGQU7541-23-26 14:54:00 Test Item Value Reference Range Interpretation Comments Glucose Lvl (test code = Glucose Lvl) 92 65-99 [facility] FPBUQ9746-11-87 14:54:00 Test Item Value Reference Range Interpretation Comments BUN (test code = BUN) 14 7-25 [facility] LQEXU4813-80-49 14:54:00 Test Item Value Reference Range Interpretation Comments Creatinine Lvl (test code = Creatinine 0.59 0.60-0.93 Lvl) [place] 144582-01-14 14:54:00 Test Item Value Reference Range Interpretation Comments eGFR NON-AFR. BURMESE (test code = 90 eGFR NON-AFR. BURMESE) [place] 144582-01-14 14:54:00 Test Item Value Reference Range Interpretation Comments eGFR (test code = eGFR 105 ) [place] 144582-01-14 14:54:00 Test Item Value Reference Range Interpretation Comments B/C Ratio (test code = B/C Ratio) 24 6-22 [place] 144582-01-14 14:54:00 Test Item Value Reference Range Interpretation Comments Sodium Lvl (test code = Sodium Lvl) 142 135-146 [place] 144582-01-14 14:54:00 Test Item Value Reference Range Interpretation Comments Potassium Lvl (test code = Potassium 4.2 3.5-5.3 Lvl) [place] 144582-01-14 14:54:00 Test Item Value Reference Range Interpretation Comments Chloride Lvl (test code = Chloride Lvl) 100 98-110 [place] 144582-01-14 14:54:00 Test Item Value Reference Range Interpretation Comments CO2 (test code = CO2) 32 20-32 [place] 144582-01-14 14:54:00 Test Item Value Reference Range Interpretation Comments Calcium Lvl (test code = Calcium Lvl) 9.8 8.6-10.4 [place] 144582-01-14 14:54:00 Test Item Value Reference Range Interpretation Comments Total Protein (test code = Total 7.1 6.1-8.1 Protein) [place] 144582-01-14 14:54:00 Test Item Value Reference Range Interpretation Comments Albumin Lvl (test code = Albumin Lvl) 4.3 3.6-5.1 [place] 144582-01-14 14:54:00 Test Item Value Reference Range Interpretation Comments Globulin (test code = Globulin) 2.8 1.9-3.7 [place] 144582-01-14 14:54:00 Test Item Value Reference Range Interpretation Comments A/G Ratio (test code = A/G Ratio) 1.5 1.0-2.5 [place] 144582-01-14 14:54:00 Test Item Value Reference Range Interpretation Comments Bili Total (test code = Bili Total) 0.6 0.2-1.2 [place] 144582-01-14 14:54:00 Test Item Value Reference Range Interpretation Comments Alk Phos (test code = Alk Phos) 113 37-153 [place] 144582-01-14 14:54:00 Test Item Value Reference Range Interpretation Comments ASPARTATE TRANSAMINASE (test code = 27 10-35 ASPARTATE TRANSAMINASE) [place] 144582-01-14 14:54:00 Test Item Value Reference Range Interpretation Comments ALANINE AMINOTRANSFERASE (test code = 22 6-29 ALANINE AMINOTRANSFERASE) [place] 544572-01-14 14:54:00 Test Item Value Reference Range Interpretation Comments WBC X 10x3 (test code = WBC X 10x3) 6.6 3.8-10.8 [place] 544572-01-14 14:54:00 Test Item Value Reference Range Interpretation Comments RBC X 10x6 (test code = RBC X 10x6) 4.51 3.80-5.10 [place] 544572-01-14 14:54:00 Test Item Value Reference Range Interpretation Comments Hgb (test code = Hgb) 12.9 11.7-15.5 [place] 544572-01-14 14:54:00 Test Item Value Reference Range Interpretation Comments Hct (test code = Hct) 38.9 35.0-45.0 [place] 544572-01-14 14:54:00 Test Item Value Reference Range Interpretation Comments MCV (test code = MCV) 86.3 80.0-100.0 [place] 544572-01-14 14:54:00 Test Item Value Reference Range Interpretation Comments MCH (test code = MCH) 28.6 pg 27.0-33.0 [place] 544572-01-14 14:54:00 Test Item Value Reference Range Interpretation Comments MCHC (test code = MCHC) 33.2 32.0-36.0 [place] 544572-01-14 14:54:00 Test Item Value Reference Range Interpretation Comments RDW (test code = RDW) 12.6 11.0-15.0 [facility] NorthwestKpufvnqQJCDGJSLYE1856-88-42 14:54:00 Test Item Value Reference Range Interpretation Comments Platelet (test code = Platelet) 254 140-400 [facility] NorthwestQbbskplGUXPSWRPYA9472-13-49 14:54:00 Test Item Value Reference Range Interpretation Comments MPV (test code = MPV) 10.6 7.5-12.5 [facility] NorthwestWesewxxOLDPQRCKPX4493-90-66 14:54:00 Test Item Value Reference Range Interpretation Comments Neutrophils # (test code = Neutrophils 4277 5272-4964 #) [facility]ZxvrxkvNFOORNOPTY6845-20-62 14:54:00 Test Item Value Reference Range Interpretation Comments Lymphocytes # (test code = Lymphocytes 1143 400-1631 #) [facility] NorthwestEqmbckkUGTCZWBHQR3913-27-25 14:54:00 Test Item Value Reference Range Interpretation Comments Monocytes # (test code = Monocytes #) 482 200-950 [facility] NorthwestAxmtpsqOALEYCNVXT1019-58-81 14:54:00 Test Item Value Reference Range Interpretation Comments Eosinophils # (test code = Eosinophils 119 15-500 #) [facility] HospitalBgqtuxgRSVMVKSGSE4563-85-82 14:54:00 Test Item Value Reference Range Interpretation Comments Basophils # (test code 33 See_Comment [Aut omated message] The = Basophils #) system which generated this result tra nsmitted reference range : <=200. The reference r vinh was not used to int erpret this result as normal/abnormal . [facility] NorthwestLydxkuuNUPCSWQIBI7523-80-33 14:54:00 Test Item Value Reference Range Interpretation Comments Segs (test code = Segs) 64.8 [facility] NorthwestHxberpwRZSHRQKFLI6532-72-36 14:54:00 Test Item Value Reference Range Interpretation Comments Lymphocytes (test code = Lymphocytes) 25.6 [facility] NorthwestDquwpmnSOYKSJBYIR4423-03-46 14:54:00 Test Item Value Reference Range Interpretation Comments Monocytes (test code = Monocytes) 7.3 [facility] NorthwestUhossijNFDICBQIAG3610-14-97 14:54:00 Test Item Value Reference Range Interpretation Comments Eosinophils (test code = Eosinophils) 1.8 [facility] HospitalLjzpozvNHIQZDQMDX8224-49-44 14:54:00 Test Item Value Reference Range Interpretation Comments Basophils (test code = Basophils) 0.5 [facility]TolleggXPBEHM0053-92-43 14:54:00 Test Item Value Reference Range Interpretation Comments Chol (test code = Chol) 155 [facility] CampusSaslqhmDZRBJP0441-29-27 14:54:00 Test Item Value Reference Range Interpretation Comments HDL (test code = HDL) 57 [facility] CampusVourbnqNLKQDK2180-32-09 14:54:00 Test Item Value Reference Range Interpretation Comments Trig (test code = Trig) 125 [facility] CampusRpswphtZWOAVN7768-26-37 14:54:00 Test Item Value Reference Range Interpretation Comments LDL (Calculated) (test code = LDL 77 (Calculated)) [facility] ResourcesFhknahwDRUIJW9443-55-51 14:54:00 Test Item Value Reference Range Interpretation Comments CHD Risk (test code = CHD Risk) 2.7 [facility] ResourcesRukawwfVRHDZV4423-78-08 14:54:00 Test Item Value Reference Range Interpretation Comments Non HDL Chol (test code = Non HDL Chol) 98 [facility] AXICUKTBS2258-39-20 14:54:00 Test Item Value Reference Range Interpretation Comments Hgb A1C (test code = Hgb A1C) 5.[address] [facility] W/AUTO [id number] 00:48:00 Test Item Value Reference Range Interpretation Comments WHITE BLOOD CELL (test code = WBC) 6.5 K/uL 3.5-11.0 N RED BLOOD CELL (test code = RBC) 4.33 M/uL 3.54-5.02 N HEMOGLOBIN (test code = HGB) 12.7 GM/DL 11.0-15.0 N HEMATOCRIT (test code = HCT) 37.5 % 37.0-47.0 N MEAN CELL VOLUME (test code = MCV) 86.6 fL 81.0-99.0 N MEAN CELL HGB (test code = MCH) 29.3 pg 27.0-31.0 N MEAN CELL HGB CONCETRATION (test 33.9 GM/DL 33.0-37.0 N code = MCHC) RED CELL DISTRIBUTION WIDTH CV 14.6 % 11.5-14.5 H (test code = RDW) PLATELET COUNT (test code = PLT) 205 K/mm3 150-400 N MEAN PLATELET VOLUME (test code = 12.5 FL 8.8-13.1 N MPV) NEUTROPHIL % (test code = NT%) 65.5 % 40.0-76.0 N LYMPHOCYTE % (test code = LY%) 31.1 % 15.0-40.0 N MIXED % (test code = MX%) 3.4 % 3.0-15.0 N NEUTROPHIL # (test code = NT#) 4.3 K/uL 1.8-7.6 N LYMPHOCYTE # (test code = LY#) 2.0 K/uL 1.0-3.8 N MIXED # (test code = MX#) 0.2 k/mm3 0.1-0.8 N BASIC METABOLIC [id number] 22:05:00 Test Item Value Reference Range Interpretation Comments SODIUM (test code = NA/ABG) 140 MEQ/L 134-147 N POTASSIUM (test code = K/ABG) 4.6 MEQ/L 3.4-5.0 N CHLORIDE (test code = CL/ABG) 105 MEQ/L 100-108 N CREATININE ABG (test code = 0.4 mg/dL 0.6-1.0 L CREAABG) POC IONIZED CALCIUM (test code = 1.12 MMOL/L 1.12-1.32 N POCCA) POC GLUCOSE (test code = POCGLU) 121 MG/DL POC LACTIC [id number] 22:05:00 Test Item Value Reference Range Interpretation Comments POC LACTIC ACID (test code = 1.6 mmol/l 0.9-1.7 N POCLAC) LIVER [id number] 22:02:00 Test Item Value Reference Range Interpretation Comments TOTAL PROTEIN (test code 6.9 GM/DL 5.0-8.0 N Per formed by = PROT) certified opera tor at 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 09An elevated tropon in value alone is not ramsey fficient todiagnose a my ocardial infarction. Rat her, the patient sclinic al presentation (h istory, physical exam) and ECGshould be us ed in conjunction wit h troponin in thediagnosti c evaluation of s uspected myocardial infa rction. Aserial samplin g protocol is recommended to facilitate the identification of temporal changes in trop onin levels characteristic of IN. - XR CHEST 1 [id number] 00:00:00 [facility] 1945 Sex: F FAX: Urbano Arvizu MD [place]: [place] St: PRE Name: SUNDEEP MEDELLIN FSED : 1945 Age/S: 75/F [address] [facility]. Unit #: [id number] Loc: [place] [address] Phys: Urbano Arvizu MD Acct: [id number] Dis Date: Status: PRE ER PHONE #: Exam Date: 04/08/20211937 FAX #: Reason: fever EXAMS: CPT CODE: [id number] XR CHEST 1 V 80139 PROCEDURE INFORMATION: Exam: XR Chest Exam date and time: 04/08/2021 7:21 PM Age: 75 years old Clinical indication: Pain; Chest pressure; Additional info: Fever TECHNIQUE: Imaging protocol: XR of the chest. Views: 1 view. COMPARISON: No relevant prior studies available. The heart is normal in size. The cardiomediastinal shadow appears within normal limits. The lungs appear clear. The pulmonary vasculature is normal in caliber. No acute pleural space abnormalities are identified. Findings suggestive of a chronic rotator cuff tear are noted in the right shoulder. IMPRESSION: 1. No radiographic evidence of acute cardiopulmonary disease. SL: 131 at 1955 Reported and signed by: Matthew Smith M.D. CC: Urbano Arvizu MD Technologist: Erica Coburn RT(R)(CT) [facility] Date/Time/By: 04/08/2021 (1955) : By: LeilaM Orig Print D/T: S: 04/08/2021 (1953) PAGE 1 Signed SrsvikWAKTTDGMLC6001-82-05 21:43:00 Test Item Value Reference Range Interpretation Comments Coronavirus (COVID-19) YONIS (test NOT DETECTED code = Coronavirus (COVID-19) YONIS) [facility] CampusMolvqjtOTGMFXQDAT9923-73-87 21:43:00 Test Item Value Reference Range Interpretation Comments Coronavirus (COVID-19) YONIS (test NOT DETECTED code = Coronavirus (COVID-19) YONIS) [facility] CampusMleutgxKZQVUATRWN1337-91-70 21:20:00 Test Item Value Reference Range Interpretation Comments POC COVID-19 Antigen Not Detected (test code = POC *NA*(04/03/21 4:20 PM) COVID-19 Antigen) [facility] 21:20:00 Test Item Value Reference Range Interpretation Comments POC COVID-19 Antigen Not Detected (test code = POC *NA*(04/03/21 4:20 PM) COVID-19 Antigen) [facility] [id number] 20:30:00 Test Item Value Reference Range Interpretation Comments Result 2 (Urine Culture) See Result Comment (test code = Result 2 (Urine Culture)) [facility] [id number] 20:30:00 Test Item Value Reference Range Interpretation Comments Result 2 (Urine Culture) See Result Comment (test code = Result 2 (Urine Culture)) [facility]2021-02-03 16:15:00 Test Item Value Reference Range Interpretation Comments Glucose Lvl (test code = Glucose Lvl) 97 65-99 [facility]2021-02-03 16:15:00 Test Item Value Reference Range Interpretation Comments BUN (test code = BUN) 20 7-25 [facility]2021-02-03 16:15:00 Test Item Value Reference Range Interpretation Comments Creatinine Lvl (test code = Creatinine 0.71 0.60-0.93 Lvl) [facility]2021-02-03 16:15:00 Test Item Value Reference Range Interpretation Comments eGFR NON-AFR. BURMESE (test code = 84 eGFR NON-AFR. BURMESE) [facility]2021-02-03 16:15:00 Test Item Value Reference Range Interpretation Comments eGFR (test code = eGFR 98 ) [facility]2021-02-03 16:15:00 Test Item Value Reference Range Interpretation Comments B/C Ratio (test code = B/C NOT APPLICABLE 622 Ratio) [facility]2021-02-03 16:15:00 Test Item Value Reference Range Interpretation Comments Sodium Lvl (test code = Sodium Lvl) 142 135-146 [facility]2021-02-03 16:15:00 Test Item Value Reference Range Interpretation Comments Potassium Lvl (test code = Potassium 4.8 3.5-5.3 Lvl) [facility]2021-02-03 16:15:00 Test Item Value Reference Range Interpretation Comments Chloride Lvl (test code = Chloride Lvl) 102 98-110 [facility]2021-02-03 16:15:00 Test Item Value Reference Range Interpretation Comments CO2 (test code = CO2) 28 20-32 [facility]2021-02-03 16:15:00 Test Item Value Reference Range Interpretation Comments Calcium Lvl (test code = Calcium Lvl) 10.0 8.6-10.4 [place] 144581-02-03 16:15:00 Test Item Value Reference Range Interpretation Comments Total Protein (test code = Total 7.0 6.1-8.1 Protein) [place] 144581-02-03 16:15:00 Test Item Value Reference Range Interpretation Comments Albumin Lvl (test code = Albumin Lvl) 4.5 3.6-5.1 [place] 144581-02-03 16:15:00 Test Item Value Reference Range Interpretation Comments Globulin (test code = Globulin) 2.5 1.9-3.7 [place] 144581-02-03 16:15:00 Test Item Value Reference Range Interpretation Comments A/G Ratio (test code = A/G Ratio) 1.8 1.0-2.5 [place] 144581-02-03 16:15:00 Test Item Value Reference Range Interpretation Comments Bili Total (test code = Bili Total) 0.9 0.2-1.2 [place] 144581-02-03 16:15:00 Test Item Value Reference Range Interpretation Comments Alk Phos (test code = Alk Phos) 81 37-153 [facility]2021-02-03 16:15:00 Test Item Value Reference Range Interpretation Comments ASPARTATE TRANSAMINASE (test code = 30 10-35 ASPARTATE TRANSAMINASE) [place] 144581-02-03 16:15:00 Test Item Value Reference Range Interpretation Comments ALANINE AMINOTRANSFERASE (test code = 25 6-29 ALANINE AMINOTRANSFERASE) [place] 544571-02-03 16:15:00 Test Item Value Reference Range Interpretation Comments WBC X 10x3 (test code = WBC X 10x3) 7.9 3.8-10.8 [place] 544571-02-03 16:15:00 Test Item Value Reference Range Interpretation Comments RBC X 10x6 (test code = RBC X 10x6) 4.40 3.80-5.10 [place] [address]-02-03 16:15:00 Test Item Value Reference Range Interpretation Comments Hgb (test code = Hgb) 12.9 11.7-15.5 [place] 544571-02-03 16:15:00 Test Item Value Reference Range Interpretation Comments Hct (test code = Hct) 38.6 35.0-45.0 [facility] NorthwestVtrsgftYJDZXEWUFD3490-60-82 16:15:00 Test Item Value Reference Range Interpretation Comments MCV (test code = MCV) 87.7 80.0-100.0 [facility] NorthwestUhsefwiKBQXCSDSAP1387-32-96 16:15:00 Test Item Value Reference Range Interpretation Comments MCH (test code = MCH) 29.3 pg 27.0-33.0 [facility] NorthwestNhtouwyJDHPZIKWYQ5327-35-38 16:15:00 Test Item Value Reference Range Interpretation Comments MCHC (test code = MCHC) 33.4 32.0-36.0 [place] 544571-02-03 16:15:00 Test Item Value Reference Range Interpretation Comments RDW (test code = RDW) 13.3 11.0-15.0 [facility] NorthwestPsbanibIUZLOEIHXB8055-01-91 16:15:00 Test Item Value Reference Range Interpretation Comments Platelet (test code = Platelet) 318 140-400 [facility] NorthwestSgbesrbAMRZPOQRJQ0182-12-97 16:15:00 Test Item Value Reference Range Interpretation Comments MPV (test code = MPV) 11.2 7.5-12.5 [place] 544571-02-03 16:15:00 Test Item Value Reference Range Interpretation Comments Neutrophils # (test code = Neutrophils 5491 9163-7193 #) [facility] NorthwestSuoopixEZYALQEVMA3937-36-89 16:15:00 Test Item Value Reference Range Interpretation Comments Lymphocytes # (test code = Lymphocytes 0032 103-3934 #) [facility] NorthwestWecupznKKHWKPSDEJ7896-03-64 16:15:00 Test Item Value Reference Range Interpretation Comments Monocytes # (test code = Monocytes #) 482 200-950 [facility] NorthwestOtppnwmHIYSFDXIOK7405-18-11 16:15:00 Test Item Value Reference Range Interpretation Comments Eosinophils # (test code = Eosinophils 71 15-500 #) [facility] NorthwestMhqujvcSTZUESXOKH6663-76-96 16:15:00 Test Item Value Reference Range Interpretation Comments Basophils # (test code 47 See_Comment [Aut omated message] The = Basophils #) system which generated this result tra nsmitted reference range : <=200. The reference r vinh was not used to int erpret this result as normal/abnormal . [facility] NorthwestKrqdnzzMTONLAECMX2329-75-89 16:15:00 Test Item Value Reference Range Interpretation Comments Segs (test code = Segs) 69.5 [facility] CampusYggooqgSDWMWYTTQK5032-50-97 16:15:00 Test Item Value Reference Range Interpretation Comments Lymphocytes (test code = Lymphocytes) 22.9 [facility]VSFUYAGNA6101-92-27 16:15:00 Test Item Value Reference Range Interpretation Comments Monocytes (test code = Monocytes) 6.1 [facility]PklwcpzIDOVMTMVBL3712-94-30 16:15:00 Test Item Value Reference Range Interpretation Comments Eosinophils (test code = Eosinophils) 0.9 [facility] HospitalDkgbiidVVJTGGKJZL4858-73-08 16:15:00 Test Item Value Reference Range Interpretation Comments Basophils (test code = Basophils) 0.6 [facility] CampusNdbodovLOIYHX2652-00-48 16:15:00 Test Item Value Reference Range Interpretation Comments Chol (test code = Chol) 156 [facility] CampusAcpqbjtRCKRYG0474-38-25 16:15:00 Test Item Value Reference Range Interpretation Comments HDL (test code = HDL) 51 [facility] CampusHqulqrvXGUPEJ0971-26-67 16:15:00 Test Item Value Reference Range Interpretation Comments Trig (test code = Trig) 163 [facility] CampusSombwhbOJUUZC4579-35-58 16:15:00 Test Item Value Reference Range Interpretation Comments LDL (Calculated) (test code = LDL 79 (Calculated)) [facility] CampusQxmrbksYJCNDI4876-77-47 16:15:00 Test Item Value Reference Range Interpretation Comments CHD Risk (test code = CHD Risk) 3.1 [facility] CampusVecjbmhBWDMUK9333-51-74 16:15:00 Test Item Value Reference Range Interpretation Comments Non HDL Chol (test code = Non HDL Chol) 105 [facility] AKDAPLPKL3697[facility]73-64 16:15:00 Test Item Value Reference Range Interpretation Comments Hgb A1C (test code = Hgb A1C) 5.5 [facility] Campuscafegive VFRHR3201-26-63 16:15:00 Test Item Value Reference Range Interpretation Comments Glucose Lvl (test code = Glucose Lvl) 97 65-99 [facility] ZOJUI6618-71-40 16:15:00 Test Item Value Reference Range Interpretation Comments BUN (test code = BUN) 20 7-25 [facility] NQXNC4976-79-88 16:15:00 Test Item Value Reference Range Interpretation Comments Creatinine Lvl (test code = Creatinine 0.71 0.60-0.93 Lvl) [facility]2021-02-03 16:15:00 Test Item Value Reference Range Interpretation Comments eGFR NON-AFR. BURMESE (test code = 84 eGFR NON-AFR. BURMESE) [facility]2021-02-03 16:15:00 Test Item Value Reference Range Interpretation Comments eGFR (test code = eGFR 98 ) [facility]2021-02-03 16:15:00 Test Item Value Reference Range Interpretation Comments B/C Ratio (test code = B/C NOT APPLICABLE 6-22 Ratio) [facility]2021-02-03 16:15:00 Test Item Value Reference Range Interpretation Comments Sodium Lvl (test code = Sodium Lvl) 142 135-146 [facility]2021-02-03 16:15:00 Test Item Value Reference Range Interpretation Comments Potassium Lvl (test code = Potassium 4.8 3.5-5.3 Lvl) [facility]2021-02-03 16:15:00 Test Item Value Reference Range Interpretation Comments Chloride Lvl (test code = Chloride Lvl) 102 98-110 [facility]2021-02-03 16:15:00 Test Item Value Reference Range Interpretation Comments CO2 (test code = CO2) 28 20-32 [facility]2021-02-03 16:15:00 Test Item Value Reference Range Interpretation Comments Calcium Lvl (test code = Calcium Lvl) 10.0 8.6-10.4 [place] 144581-02-03 16:15:00 Test Item Value Reference Range Interpretation Comments Total Protein (test code = Total 7.0 6.1-8.1 Protein) [facility]2021-02-03 16:15:00 Test Item Value Reference Range Interpretation Comments Albumin Lvl (test code = Albumin Lvl) 4.5 3.6-5.1 [place] 144581-02-03 16:15:00 Test Item Value Reference Range Interpretation Comments Globulin (test code = Globulin) 2.5 1.9-3.7 [place] 144581-02-03 16:15:00 Test Item Value Reference Range Interpretation Comments A/G Ratio (test code = A/G Ratio) 1.8 1.0-2.5 [place] 144581-02-03 16:15:00 Test Item Value Reference Range Interpretation Comments Bili Total (test code = Bili Total) 0.9 0.2-1.2 [facility]2021-02-03 16:15:00 Test Item Value Reference Range Interpretation Comments Alk Phos (test code = Alk Phos) 81 37-153 [place] 144581-02-03 16:15:00 Test Item Value Reference Range Interpretation Comments ASPARTATE TRANSAMINASE (test code = 30 10-35 ASPARTATE TRANSAMINASE) [facility]2021-02-03 16:15:00 Test Item Value Reference Range Interpretation Comments ALANINE AMINOTRANSFERASE (test code = 25 6-29 ALANINE AMINOTRANSFERASE) [place] 544571-02-03 16:15:00 Test Item Value Reference Range Interpretation Comments WBC X 10x3 (test code = WBC X 10x3) 7.9 3.8-10.8 [place] 544571-02-03 16:15:00 Test Item Value Reference Range Interpretation Comments RBC X 10x6 (test code = RBC X 10x6) 4.40 3.80-5.10 [place] 544571-02-03 16:15:00 Test Item Value Reference Range Interpretation Comments Hgb (test code = Hgb) 12.9 11.7-15.5 [place] 544571-02-03 16:15:00 Test Item Value Reference Range Interpretation Comments Hct (test code = Hct) 38.6 35.0-45.0 [place] 544571-02-03 16:15:00 Test Item Value Reference Range Interpretation Comments MCV (test code = MCV) 87.7 80.0-100.0 [place] 544571-02-03 16:15:00 Test Item Value Reference Range Interpretation Comments MCH (test code = MCH) 29.3 pg 27.0-33.0 [place] 544571-02-03 16:15:00 Test Item Value Reference Range Interpretation Comments MCHC (test code = MCHC) 33.4 32.0-36.0 [place] 544571-02-03 16:15:00 Test Item Value Reference Range Interpretation Comments RDW (test code = RDW) 13.3 11.0-15.0 [place] 544571-02-03 16:15:00 Test Item Value Reference Range Interpretation Comments Platelet (test code = Platelet) 318 140-400 [facility] NorthwestKakhhclQNNFSLATVR2488-42-21 16:15:00 Test Item Value Reference Range Interpretation Comments MPV (test code = MPV) 11.2 7.5-12.5 [facility] NorthwestZoexhffQJNQSEXWAD7349-61-94 16:15:00 Test Item Value Reference Range Interpretation Comments Neutrophils # (test code = Neutrophils 5491 1907-2641 #) [facility] NorthwestBwknpumUNYUXZGPWF0192-16-04 16:15:00 Test Item Value Reference Range Interpretation Comments Lymphocytes # (test code = Lymphocytes 1432 998-1726 #) [facility]HvyifxyXVPJVHCLQS3989-43-07 16:15:00 Test Item Value Reference Range Interpretation Comments Monocytes # (test code = Monocytes #) 482 200-950 [facility] NorthwestTkhszvyFXMLDYJVLS6595-38-77 16:15:00 Test Item Value Reference Range Interpretation Comments Eosinophils # (test code = Eosinophils 71 15-500 #) [facility] NorthwestCguemaeAGVMXOIRPC4725-44-61 16:15:00 Test Item Value Reference Range Interpretation Comments Basophils # (test code 47 See_Comment [Aut omated message] The = Basophils #) system which generated this result tra nsmitted reference range : <=200. The reference r vinh was not used to int erpret this result as normal/abnormal . [facility] NorthwestPrnnswxMWRHCJVTXN9318-90-22 16:15:00 Test Item Value Reference Range Interpretation Comments Segs (test code = Segs) 69.5 [facility] NorthwestOrairkeOZFXFHLWAQ5396-61-92 16:15:00 Test Item Value Reference Range Interpretation Comments Lymphocytes (test code = Lymphocytes) 22.9 [facility] NorthwestUpvzkwpSTSNFJEFFU0052-52-76 16:15:00 Test Item Value Reference Range Interpretation Comments Monocytes (test code = Monocytes) 6.1 [facility] NorthwestSsweheaUFQQHWJDSX9520-58-49 16:15:00 Test Item Value Reference Range Interpretation Comments Eosinophils (test code = Eosinophils) 0.9 [facility] NorthwestTxdtynhTUHYDGQSPC4743-74-21 16:15:00 Test Item Value Reference Range Interpretation Comments Basophils (test code = Basophils) 0.6 [facility] CampusFvibdptXEWZQC0194-36-35 16:15:00 Test Item Value Reference Range Interpretation Comments Chol (test code = Chol) 156 [facility]PtjbivyACHTEV2473-52-47 16:15:00 Test Item Value Reference Range Interpretation Comments HDL (test code = HDL) 51 [facility] CampusVjshspsIHBSUJ9486-45-99 16:15:00 Test Item Value Reference Range Interpretation Comments Trig (test code = Trig) 163 [facility] CampusWqvwusnXPGHDF0793-61-31 16:15:00 Test Item Value Reference Range Interpretation Comments LDL (Calculated) (test code = LDL 79 (Calculated)) [facility] 16:15:00 Test Item Value Reference Range Interpretation Comments CHD Risk (test code = CHD Risk) 3.1 [facility]HkmgxqaZINLJO9397-40-65 16:15:00 Test Item Value Reference Range Interpretation Comments Non HDL Chol (test code = Non HDL Chol) 105 [facility] MKPTQOGYD3442-99-41 16:15:00 Test Item Value Reference Range Interpretation Comments Hgb A1C (test code = Hgb A1C) 5.5 [facility] Notes Date/Time Note Provider Source 2023-02-11 12:40:00-00:00 Radiation Dose CTDIVOL = 0 ( mGy): DLP = 1071.3 (mGy-cm) [facility] PROCEDURE INFORMATION: Exam: CT Head Without Contrast Exam date and time: 02/11/2023 12:38 PM Age: 77 years old Clinical indication: /g31.84 TECHNIQUE: Imaging protocol: Computed tomography of the hea d without contrast. Radiation optimization: All CT scans at this facility use at least one of these dose optimization techniques: automated exposure control; mA and/or kV adjustment per patient size (includes targeted e xams where dose is matched to clinical indication); or iterative reconstructio n. REPORTING DATA: Count of CT and Cardiac NM exams in prio r 12 months: This patient has received 0 known CTs and 0 known card iac nuclear medicine studies in the 12 months prior to the current study. COMPARISON: NECK SOFT TISSUE W CONTRAST CT 02/01/2022 11:22 A M RADIATION DOSE METRICS: Total DLP (mGy-cm): 1071.3 FINDINGS: Brain: There is no evidence of acute intracrania l hemorrhage, subacute territorial infarct, mass effect or midline shif t. No extra-axial fluid collection. Please note that acute infar cts can be occult on CT scan. There is mild generalized volume loss.There are mild hypo densities in the white matter suggestive of chronic small vessel ischemic glass ges in this age. There are atheromatous calcifications in the intracranial ICAs and vertebral arteries. Old lacunar insults in the lenticular capsular r egion. Cerebral ventricles: Unremarkable for age. Paranasal sinuses: Visualized sinuses are unrema rkable. No fluid levels. Mastoid air cells: Visualized mastoid air cells are well aerated. Bones/joints: Unremarkable. No acute fracture. Soft tissues: Unremarkable. IMPRESSION: 1. No evidence of acute intracranial process. 2. Mild volume loss without lobar predominance. 3. Mild chronic microangiopathy. 4. Old lacunar insults in the lenticulocapsular regions. COMMENTS: If there is a concern for acute intracranial pro cess and/or persistent symptoms, emergent assessment with MRI or CTA is recommended. Carla Keating MD On 02/12/2023 05:56: 47; [id number] 2022-02-01 10:00:00-00:00 Radiation Dose CTDIVOL = 0 ( mGy): DLP = 356.1 (mGy-cm) [facility] PROCEDURE INFORMATION: Exam: CT Chest With Contrast; Diagnostic Exam date and time: 02/01/2022 10:31 AM Age: 76 years old Clinical indication: Paresthesia of skin; Additi onal info: /tingling numbness weakness bilat upper extremities worse on right TECHNIQUE: Imaging protocol: Diagnostic computed tomography of the chest with contrast. Radiation optimization: All CT scans at this facility use at least one of these dose optimization techniques: automated exposure control; mA and/or kV adjustment per patient size (includes targeted e xams where dose is matched to clinical indication); or iterative reconstructio n. Contrast material: OMNIPAQUE 300; Contrast volum e: 75 ml; Contrast route: INTRAVENOUS (IV); COMPARISON: No relevant prior studies available. RADIATION DOSE METRICS: Total DLP (mGy-cm): 356.1 FINDINGS: Lungs: Lungs are clear. No consolidation. Pleural spaces: Unremarkable. No pneumothorax. N o pleural effusion. Heart: No cardiomegaly. No pericardial effusion. Lymph nodes: No threshold enlarged lymph nodes v isualized. 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 Thoracic aorta is normal in caliber. Atheroscler otic calcifications course along the coronary arteries. Diaphragm: Small hiatal hernia is identified. Bones/joints: No acute osseous abnormalities. No suspicious lytic or blastic osseous lesions. Soft tissues: No mass or fluid collection. IMPRESSION: No acute cardiopulmonary findings. No evidence f or metastatic disease. Small hiatal hernia. Terry Holcomb MD On 02/02/2022 16:19:05; RENE [id number] 2022-02-01 10:00:00-00:00 Radiation Dose CTDIVOL = 0 ( mGy): DLP = 283.1 (mGy-cm) [facility] PROCEDURE INFORMATION: Exam: CT Neck With Contrast Exam date and time: 02/01/2022 10:31 AM Age: 76 years old Clinical indication: Radiculopathy, cervicothora cic region; Additional info: /numbness tingling of both arms, mainly right TECHNIQUE: Imaging protocol: Computed tomography of the [facility] k with contrast. Radiation optimization: All CT scans at this facility use at least one of these dose optimization techniques: automated exposure control; mA and/or kV adjustment per patient size (includes targeted e xams where dose is matched to clinical indication); or iterative reconstructio n. Contrast material: OMNIPAQUE 300; Contrast volum e: 75 ml; Contrast route: INTRAVENOUS (IV); COMPARISON: No relevant prior studies available. RADIATION DOSE METRICS: Total DLP (mGy-cm): 283.1 FINDINGS: Brain: The visualized brain parenchyma and orbit al fossa contents are normal. Pharynx: Unremarkable. No significant tonsillar enlargement. Larynx: Unremarkable. Epiglottis is normal. Prevertebral and retropharyngeal spaces: There i s no compromise of the airway are retropharyngeal abnormality. Salivary glands: The submandibular glands are no rmal. The parotid glands are normal. Thyroid: The thyroid gland is normal. Lymph nodes: There are minute physiologic level 1 and 2 nodes present. Trachea: Visualized trachea is unremarkable. Lungs: Subtle ground-glass appearance to the int erstitium of the right upper lobe is present there is no segmental infiltrate . Bones/joints: There is minim al degenerative change of the C5-C6 disc space with hypertrophic change right un covertebral joint and minimal to moderate foraminal stenosis. There is degenerative change of left C 2-C3 facet joint. 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 There is athero matous calcification of the right carotid bifurcation with a retropharyngeal position of the proximal internal carotid artery. Soft tissues: Unremarkable. No significant soft tissue swelling. IMPRESSION: There is no compromise of the airway or significant cervical lymphadenopathy. Richard Walton MD On 02/01/2022 11:43:02; VR-BB [id number] 2021-11-01 10:04:00-00:00 [facility] BILATERAL DIGITAL SCREENING MAMMOGRAM 3D/2D WITH CAD: 11/01/2021 CLINICAL: /Breast Ca Screening. Current study was evaluated with a Automotive Upholste[employer] d Detection (CAD) system. COMPARISON:Comparison is mad e to exams dated: 09/19/2020 mammogram, 08/18/2019 mammogram, 08/12/2018 mammogram - [facility], and 02/19/2017 mammogram - Outside Facility. TECHNIQUE: Digital Breast To mosynthesis was performed and utilized for Interpretation. Current study was also evaluated with a Computer Aided Detection (CAD) system. FINDINGS: There are scattered fibroglandular densities in both breasts. There are benign vascular ca lcifications and calcifications in both breasts. There also is a biopsy clip in the right breast. No significant masses, calci fications, or other findings are seen in either breast. There has been no significant interval change. IMPRESSION: BENIGN RECOMMENDATION:There is no m ammographic evidence of malignancy. A 1 year screening mammogram is recommended.(11/02/2022) This exam was interpreted at [id number] [facility]. Carolina Jeffery M.D. ap/penrad:11/01/2021 13:21:07 Manufacturing Engineer Machining(s): RT Diana (R)(M), [facility] letter sent: BI-RADS 1/2 Mammogram BI-RADS: 2 Benign 2021-04-08 18:24:00-00:00 [facility] EMERGENCY PROVIDER REPORT REPORT#:[id number] REPORT STATUS: Signed DATE:04/08/21 TIME: 1823 PATIENT: SUNDEEP MEDELLIN UNIT #: [id number] ROOM/BED: AGE: 75 SEX: F PCP PHYS: Sayda Dinh SERVICE AUTHOR: Andrey Vasquez DO * ALL edits or amendments must be made on the [employer]/computer document * Andrey Vasquez 04/08/211823: HPI-URI/Cough/Cold General Initial Greet Date/Time 04/08/211819 Past Medical History - Adult Stated Complaint SOB,CHILLS,SHAKING,FEVER Allergies Coded Allergies: Penicillins (RASH ITCHING 03/13/12) Home Medications Reported Medications CLOPIDOGREL (PLAVIX) cloNIDine (CATAPRES TTS-1) 1 PATCH TRANSDERM QWE EK cloNIDine (CATAPRES) 0.1 MG PO PRN Metoprolol Succinate (Toprol XL) 50 MG PO DAILY VALSARTAN (DIOVAN) 320 MG PO DAILY SIMVASTATIN (ZOCOR) 5 MG PO DAILY ASPIRIN EC (ECOTRIN) 81 MG PO DAILY Patient Discharge Departure Vital Signs/Condition Vital Signs All vital signs available at the time of this en try have been reviewed. Urbano Arvizu 04/08/211933: HPI-URI/Cough/Cold Presentation Chief Complaint Cough, non-productive Free Text HPI Notes Free Text HPI Notes 75-year-old female here with nonproductive cough and other URI symptoms for 7 days. She was seen by her pr imary doctor and started on a course of doxycycline which he is almost done with. She is als o almost done with the Medrol Dosepak. She had a Covid test a few days ago which was ne gative. She is here wanting a second opinion because the cough is pers istent and she is wanting x-ray of the chest. She has no history of asthma or COPD. Exa cerbating factors include exertion alleviating factors include rest. Risk factors are age. She also has a cardiac history with stent. Symptoms are mild to moderate. She has a bronchospastic sounding cough at the bedside wit hin try some albuterol treatments to see if that wi ll help with the bronchospasm. Chest x-ray looks to be clear I do not see any pneumonia. Review of Systems ROS Statements All systems rev neg except as marked. Focused Review of Systems Respiratory Reports: Cough, non-productive, Dyspnea on exert ion, Wheezing. Denies: Hemoptysis, Parox nocturnal dyspnea, Pleuritic p ain, Shortness of breath. Past Medical History - Adult Past Medical History: Reports: Coronary artery disease. Past Surgical History: Reports: PCI. Physical Exam Vital Signs Review of Vital Signs Reviewed Basic Physical Exam Basic PE HEAD: Atraumatic/NC, EYES: PERRL, conj clear, NECK: Supple, CV: Reg rate rhythm, ABD: Soft/non-tender, EXT: No gross abnormality, SKIN: No rashes, warm/dry, NEURO: alert oriented, NEURO: gross mo vement NL, PSYCH: NL thought content Focused PE Resp/Chest Respiratory/Chest Atraumatic, Breath sounds NL, Breath sounds = bilat, No rales, No rhonchi, No wheezing, No retractions Interpretation Diagnostics Lab Results Interpretation Results Laboratory Tests: 04/08 214 Blood Gas Sodium (134 - 147 MEQ/L) 140 Potassium (3.4 - 5.0 MEQ/L) 4.6 Chloride (100 - 108 MEQ/L) 105 Ionized Calcium (1.12 - 1.32 MMOL/L) 1.12 Lactic Acid (0.9 - 1.7 mmol/l) 1.6 Chemistry POC Creatinine (0.6 - 1.0 mg/dL) 0.4 L POC Glucose (mg/dL) (MG/DL) 121 Total Bilirubin (0.0 - 1.0 MG/DL) 0.4 GGT (5 - 85 UNITS/L) 28 AST (15 - 37 IUnit/L) 42 H ALT (30 - 65 IUnit/L) 23 L Total Alk Phosphatase (20 - 125 IUNIT/L) 126 H Rapid Troponin I (0.00 - 0.08 ng/mL) 0.00 Total Protein (5.0 - 8.0 GM/DL) 6.9 Albumin (3.4 - 5.0 g/dL) 3.5 Amylase (25 - 125 UNITS/L) 46 Microbiology: Date/Time Procedure - Status Source Growth 04/08 1917 MRSA DNA Surveillance Screen - ORD NASAL 04/08 1917 Blood Culture - ORD BLOOD 04/08 1917 Blood Culture - ORD BLOOD Recent Impressions: RADIOLOGY - XR CHEST 1 V 04/08 1938 Report Impression - Status: SIGNED Entered: 04/08/20211955 IMPRESSION: 1. No radiographic evidence of acute cardiopulmo nary disease. SL: 131 Impression By: Micah Smtih M.D. Re-Evaluation MDM ED Course Medication(s) Ordered Medication(s) Ordered: Anti-Infective Agents Sig/Aidan Start time Last Medication Dose Route Stop Time Status Admin Levofloxacin 750 MG X1ED STA 04/08 1932 DC / 6 PO 04/08 Levofloxacin/Dextrose 150 ML X1ED STA 04/08 191 5 CAN IV 04/08 2044 Autonomic Drugs Sig/Aidan Start time Last Medication Dose Route Stop Time Status Admin Albuterol Sulfate 4 PUFF X1ED STA 04/08 2028 DC 04/08 INH 04/08 Albuterol Sulfate 7.5 MG X1ED STA 04/08 1931 DC 04/08 NEB 04/08 Electrolytic, Caloric, And Melissa Sig/Aidan Start time Last Medication Dose Route Stop Time Status Admin Sodium Chloride 0 ASDIR PRN 04/08 1930 AC IV 04/09 1816 Sodium Chloride 1,000 ML ONCE ONE 04/08 1915 C AN IV 04/08 1916 Patient Discharge Departure Clinical Impression Clinical Impression Primary Impression: Bronchitis Time of Impression 2243 Disposition Decision Discharge )( Discharged to Home Yes )( Time 2243 )( Date 04/08/21 Discharge/Care Plan Counseled Regarding Diagnosi s, Lab results, Imaging studies, Medication changes, Prescriptions, Need for follow-up, When to retur n to ED Prescriptions Reviewed Risks, Benefits Additional Instructions We are going to start you on some asthma treatme nts for the bronchospastic coughing. The x-ray does not show any evidence o f pneumonia. Please continue the other medications your doctor prescribed you . The doxycycline is a very good antibiotic for bacteria l infections of the lung and should be finished. In the meantime start using the albuterol rescue inhaler. You can use it as needed every several hours for coughing spells. I am go ing to also give you a prescription for Tessalon Perles which will help to reduce the coughing sensation. If your condition worsens you can return here and I encourage you to follow-up with your primary doctor for reevaluat ion as soon as you can. Electronically Signed by Urbano Arvizu MD on 0 04/08/21 at 2245 Electronically Signed by Andrey Vasquez DO on 01/31 at 0313 [facility] #:[id number] END OF REPORT 2020-09-19 10:14:03-00:00 Adilene Hutson BILATERAL DIGITAL SCREENING MAMMOGRAM 3D/2D WITH CAD: 09/19/2020 CLINICAL: /Asx Screening Mmg. Current study was evaluated with a Automotive Upholsterer d Detection (CAD) system. COMPARISON:Comparison is mad e to exams dated: 08/18/2019 mammogram, 08/12/2018 mammogram - [facility], 02/19/2017 mammogram, and 11/23/2015 mammogram - Outside Facility. TECHNIQUE: Digital Breast To mosynthesis was performed and utilized for Interpretation. Current study was also evaluated with a Computer Aided Detection (CAD) system. FINDINGS: There are scattered fibroglandular densities in both breasts. There is a stable benign foc al asymmetry in both breasts. There also are stable benign calcifications in both breasts. Additionally, there is a biopsy clip in the right breast. No significant masses, calci fications, or other findings are seen in either breast. There has been no significant interval change. IMPRESSION: BENIGN RECOMMENDATION:There is no m ammographic evidence of malignancy. A 1 year screening mammogram is recommended.(09/20/2021) This exam was interpreted at [id number] for [facility]. Bassam osullivan/penrad:09/19/2020 11:08:43 Manufacturing Engineer Machining(s): Lauren Leong, [facility] letter sent: BI-RADS 1/2 Mammogram BI-RADS: 2 Benign 2019-08-18 11:30:01-00:00 Adilene Hutson BILATERAL DIGITAL SCREENING MAMMOGRAM 3D/2D WITH CAD: 08/18/2019 CLINICAL: Screening/Z12.31. Current study was evaluated with a Automotive Upholsterer d Detection (CAD) system. COMPARISON:Comparison is mad e to exams dated: 08/12/2018 mammogram - [facility], 02/19/2017 mammogram, 11/23/2015 mammogram, and 06/28/2014 mammogram - Outside Facility. TECHNIQUE: Digital Breast To mosynthesis was performed and utilized for Interpretation. Current study was also evaluated with a Computer Aided Detection (CAD) system. FINDINGS: The tissue of both breasts i s heterogeneously dense, which could obscure detection of small masses. There is a stable benign foc al asymmetry in both breasts. There also are stable benign vascular calcifications and calcifications in both breasts. Additionally, there is a biopsy clip in the right breast. No significant masses, calci fications, or other findings are seen in either breast. There has been no significant interval change. IMPRESSION: BENIGN RECOMMENDATION:There is no m ammographic evidence of malignancy. A 1 year screening mammogram is recommended.(08/18/2020) This exam was interpreted at [id number] for [email or web address]. Marielle Alamo M.D. sg/derian:08/18/2019 15:38:45 Manufacturing Engineer Machining(s): Simon Rojas, RT (R)(M), [facility] letter sent: BI-RADS 1/2 Mammogram BI-RADS: 2 Benign 2018-09-16 09:58:00-00:00 Adilene Hutson BONE DENSITY ASSESSMENT: 09/16/2018 CLINICAL DATA: Post menopausal. /Bmd Screening A sx RISK FACTORS: race and early or surgic al menopause. FINDINGS: Bone density evaluation was performed 09/16/2018 on the left femur neck using a Hologic unit. The BMD average for the exam is 0.729 g/cm2. The T-score is -1.10 and the Z-score is 0.80. This matches the World Health Organization's criteria for osteopenia and places the patient at a medium risk for fracture. An additional bone density e valuation was performed 09/16/2018 on the left femur neck using a Hologic unit. The BMD average for the exam is 0.711 g/cm2. The T-score is -0.70 and the Z-score is 1.20. Thi s matches the World Health O rganization's criteria for normal bone density and places the patient within normal limits of fracture risk. An additional bone density e valuation was performed 09/16/2018 on the AP L1-L4 region of spine using a Hologic unit. The BMD average for the exam is 1.002 g/cm2. The T-score is -0.40 and the Z-score is 1.80. This matches the World Health Organization's criteria for normal bone density and places the patient within normal limits of fracture risk. FRAX 10 year probability of major osteoporotic fracture is 9.2% and hip fracture is 1.1%. IMPRESSION: OSTEOPENIA Patient is at medium risk fo r fracture. This exam was interpreted at [id number] for [email or web address]. Lexie Baer M.D. /penrad:09/16/2018 10:32:50 Manufacturing Engineer Machining(s): Jeimy Leslie, [facility] 2018-08-12 10:05:00-00:00 Adilene Hutson BILATERAL DIGITAL SCREENING MAMMOGRAM 3D/2D WITH CAD: 08/12/2018 CLINICAL: /Breast Ca Screening. Hx Of Bx On R 15 And 20 Yrs Ago. Current study was evaluated with a Automotive Upholsterer d Detection (CAD) system. COMPARISON:No prior exams were available for [facility]. TECHNIQUE: Digital Breast To mosynthesis was performed and utilized for Interpretation. Current study was also evaluated with a Computer Aided Detection (CAD) system. FINDINGS: The tissue of both breasts i s heterogeneously dense, which could obscure detection of small masses. There is a biopsy clip in the right breast. No significant masses, calci fications, or other findings are seen in either breast. IMPRESSION: BENIGN RECOMMENDATION: There is no mammographic sandhya dence of malignancy. A 1 year screening mammogram is recommended.(08/13/2019) Please note, prior outside f acility mammograms were not submitted for review. If priors are submitted, an addendum will be issued which may preclude the need for additonal imaging. This exam was interpreted at [id number] for [facility]. Lexie Baer M.D. /:08/21/2018 08:49:25 Manufacturing Engineer Machining(s): Jesse Elise, RT(R)(M), [facility] letter sent: BI-RADS 1/2 Dense Mammogram BI-RADS: 2 Benign"
--- NOTE | 2023-02-21 10:42 | RAD REPORT ---
EXAM DESCRIPTION: CT - Head Brain Wo Cont - 02/21/2023 10:29 am CLINICAL HISTORY: TRAUMA COMPARISON: No comparisons TECHNIQUE: All CT scans are performed using dose optimization technique as appropriate and may inclu de automated exposure control or mA/KV adjustment according to patient size. FINDINGS: No intracranial hemorrhage, hydrocephalus or extra-axial fluid collection.No areas of brai n edema or evidence of midline shift. Partially empty sella, typically a normal variant. Chronic smal l vessel ischemic changes. The paranasal sinuses and mastoids are clear. The calvarium is intact. IMPRESSION: No acute intracranial abnormality.
[2023-02-21] MEDS ORDERED: TDAP (DIPHTH,PERTUSS(ACELL),TET VAC) 0.5 ML VIAL IMVAC ONE (10:43)
[2023-02-21] MEDS ORDERED: DERMABOND SKIN ADHESIVE TOP ONE (10:43)
--- NOTE | 2023-02-21 10:47 | ER ---
Nurse's Notes [facility] Name: Ani De Luna Age: 77 yrs Sex: Female : 1945 Arrival Date: 02/21/2023 Time: 10:16 Bed 18 Private MD: Diagnosis: Unspecified injury of head, initial encounter;Fall on same level from slipping, tripping and stumbling without subsequent striking against object;Laceration without foreign body of scalp Presentation: 02/21 10:19 Chief complaint: Patient states: was visiting upstairs when she tripped on her shoes ap3 and fell on her head. patient presents to the ED with a laceration above her left eyebrow, denies LOC and denies being on blood thinners. Coronavirus screen: At this time, the client does not indicate any symptoms associated with coronavirus-19. Ebola Screen: No symptoms or risks identified at this time. Initial Sepsis Screen: Does the patient meet any 2 criteria? No. Patient's initial sepsis screen is negative. Does the patient have a suspected source of infection? No. Patient's initial sepsis screen is negative. Risk Assessment: Do you want to hurt yourself or someone else? Patient reports no desire to harm self or others. Onset of symptoms was February 21, 2023. 10:19 Method Of Arrival: Wheelchair ap3 10:19 Acuity: CARMELO 3 ap3 Triage Assessment: 10:25 General: Appears in no apparent distress. Behavior is calm, cooperative, appropriate ap3 for age. Pain: Complains of pain in forehead Pain began suddenly. Neuro: Level of Consciousness is awake, alert, obeys commands, Oriented to person, place, time, situation, Speech is normal. Cardiovascular: Patient's skin is warm and dry. Respiratory: Airway is patent Respiratory effort is even, unlabored, Respiratory pattern is regular, symmetrical. Derm: Wound noted forehead. Historical: - Allergies: 10:56 PENICILLINS; ap3 - Home Meds: 10:21 ropinirole oral [Active]; diclofenac oral [Active]; omeprazole Oral [Active]; ap3 atorvastatin oral [Active]; Metoprolol Tartrate Oral [Active]; citalopram oral [Active]; irbesartan oral [Active]; Methotrexate Sodium Oral [Active]; Folic Acid Oral [Active]; - PMHx: 10:21 Hypertensive disorder; Gastroesophageal reflux disease; Rheumatoid arthritis; ap3 Hypercholesterolemia; - PSHx: 10:21 3 cardiac stents; ap3 - Immunization history:: Client reports receiving the 2nd dose of the Covid vaccine. - Social history:: Smoking status: Patient denies any tobacco usage or history of. Screenin:26 [facility] ED Fall Risk Assessment (Adult) History of falling in the last 3 months, ap3 including since admission Yes- fall prone (multiple falls) (3 pts) Confusion or Disorientation No (0 pts) Intoxicated or Sedated No (0 pts) Impaired Gait No (0 pts) Mobility Assist Device Used No (0 pt) Altered Elimination No (0 pt). Abuse screen: Denies threats or abuse. Nutritional screening: No deficits noted. Tuberculosis screening: No symptoms or risk factors identified. Vital Signs: 10:19 Pulse 69; Resp 18; Temp 98.7; Pulse Ox 100% ; ap3 10:56 BP 155 / 88; ap3 ED Course: 10:18 Patient arrived in ED. kb 10:18 Nimco Menjivar FNP-C is PHCP. kb 10:18 Arya Robert MD is Attending Physician. kb 10:19 Kacy Culver, BUD is Primary Nurse. ap3 10:21 Triage completed. ap3 10:25 Attending Physician role handed off by Arya Robert MD cp3 10:25 Tiffanie Adnrew MD is Attending Physician. cp3 10:26 Arm band placed on right wrist. ap3 10:26 Patient has correct armband on for positive identification. Bed in low position. Call ap3 light in reach. Side rails up X 1. Pulse ox on. NIBP on. 10:30 CT Head Brain wo Cont In Process Unspecified. EDMS 10:56 Provided Education on: fall prevention education. ap3 10:56 No provider procedures requiring assistance completed. IV discontinued. ap3 Administered Medications: 10:44 Drug: Tetanus-Diphtheria Toxoid IM Adult 0.5 ml {Sanding Line Operator: [employer] ([employer]). ap3 Exp: 07/31/2023. Lot #: [id number]. } Route: IM; Site: right deltoid; 10:57 Follow up: Response: No adverse reaction ap3 Medication: 10:45 Vaccine Information Statement (VIS) provided today. Questions and/or concerns ap3 addressed. VIS edition date: February 2021. Outcome: 10:47 Discharge ordered by . kb 10:56 Discharged to home ambulatory. ap3 10:56 Condition: good 10:56 Discharge instructions given to patient, Instructed on discharge instructions, follow up and referral plans. wound care, Demonstrated understanding of instructions, follow-up care. 10:56 Patient left the ED. ap3 Signatures: Dispatcher [employer] EDNimco Resendiz, DATA ANALYTICS ARCHITECT-C MELANIA-Tiffanie Caballero MD MD cp3 Kacy Culver RN RN ap3
--- NOTE | 2023-02-21 10:47 | EDPHYS ---
Physician Documentation [facility] Name: Ani De Luna Age: 77 yrs Sex: Female : 1945 Arrival Date: 02/21/2023 Time: 10:16 Bed 18 Private MD: ED Physician Tiffanie Andrew HPI: 02/21 10:31 This 77 yrs old Female presents to ER via Wheelchair with complaints of Head injury cp3 status post fall. 10:49 Details of fall: The patient fell from an upright position, while walking. Onset: The kb symptoms/episode began/occurred just prior to arrival. Associated injuries: The patient sustained injury to the head, laceration, pain. Severity of symptoms: At their worst the symptoms were mild, in the emergency department the symptoms are unchanged. The patient has not experienced similar symptoms in the past. The patient has not recently seen a physician. Pt tripped over her shoe and fell, striking head on the ground. Denies loc. Denies dizziness. States she is starting to have a headache now. . Historical: - Allergies: 10:56 PENICILLINS; ap3 - Home Meds: 10:21 ropinirole oral [Active]; diclofenac oral [Active]; omeprazole Oral [Active]; ap3 atorvastatin oral [Active]; Metoprolol Tartrate Oral [Active]; citalopram oral [Active]; irbesartan oral [Active]; Methotrexate Sodium Oral [Active]; Folic Acid Oral [Active]; - PMHx: 10:21 Hypertensive disorder; Gastroesophageal reflux disease; Rheumatoid arthritis; ap3 Hypercholesterolemia; - PSHx: 10:21 3 cardiac stents; ap3 - Immunization history:: Client reports receiving the 2nd dose of the Covid vaccine. - Social history:: Smoking status: Patient denies any tobacco usage or history of. ROS: 10:49 Constitutional: Negative for fever, chills, and weight loss. kb 10:49 Skin: Positive for laceration(s), of the left side of forehead. 10:49 Neuro: Positive for headache. 10:49 All other systems are negative. Exam: 10:49 Constitutional: This is a well developed, well nourished patient who is awake, alert, kb and in no acute distress. ENT: Moist Mucous membranes Cardiovascular: Regular rate and rhythm with a normal S1 and S2. No gallops, murmurs, or rubs. No pulse deficits. Respiratory: Respirations even and unlabored. No increased work of breathing. Talking in full sentences Abdomen/GI: Soft, non-tender. No distention Skin: Warm, dry with normal turgor. Normal color. MS/ Extremity: Pulses equal, no cyanosis. Neurovascular intact. Full, normal range of motion. Neuro: Awake and alert, GCS 15, oriented to person, place, time, and situation. Moves all extremities. Normal gait. 10:49 Head/face: Noted is no obvious of injury or deformity except a laceration(s), that is superficial, 1.5 cm(s), of the left side of forehead. Vital Signs: 10:19 Pulse 69; Resp 18; Temp 98.7; Pulse Ox 100% ; ap3 10:56 BP 155 / 88; ap3 MDM: 10:18 Patient medically screened. kb 10:22 ED course: ED attending note: Patient is a well-appearing 77-year-old female who cp3 tripped and fell approximately 1 hour prior to arrival. Patient hit her head and sustained a laceration to the left lateral forehead approximately 1 cm. Bleeding resolved with direct pressure. On exam patient awake and alert no acute distress with 1 cm laceration to the lateral forehead. Patient ambulatory without assistance, GCS of 15 no tenderness to the chest wall, abdomen, upper and lower extremities. CT head and lack repair agree with plan for CT head and laceration repair.. 10:49 Differential diagnosis: abrasion, closed head injury, fracture, laceration. Data kb reviewed: vital signs, nurses notes. Counseling: I had a detailed discussion with the patient and/or guardian regarding: the historical points, exam findings, and any diagnostic results supporting the discharge/admit diagnosis, radiology results, the need for outpatient follow up, a family practitioner, to return to the emergency department if symptoms worsen or persist or if there are any questions or concerns that arise at home. 10:51 ED course: laceration is well approximated. steri-strips and dermabond applied. kb 02/21 10:18 Order name: CT Head Brain wo Cont; Complete Time: 10:43 kb 02/21 10:18 Order name: Dermabond; Complete Time: 10:45 kb Administered Medications: 10:44 Drug: Tetanus-Diphtheria Toxoid IM Adult 0.5 ml {Tester Regulator: [email or web address] ([employer]). ap3 Exp: 07/31/2023. Lot #: [id number]. } Route: IM; Site: right deltoid; 10:57 Follow up: Response: No adverse reaction ap3 Disposition Summary: 02/21/23 10:47 Discharge Ordered Location: Home kb Condition: Stable kb Diagnosis - Unspecified injury of head, initial encounter kb - Fall on same level from slipping, tripping and stumbling without subsequent kb striking against object - Laceration without foreign body of scalp kb Followup: kb - With: Emergency Department - When: As needed - Reason: Worsening of condition Followup: kb - With: Private Physician - When: 2 - 3 days - Reason: Recheck today's complaints, Continuance of care, Re-evaluation by your physician Discharge Instructions: - Discharge Summary Sheet kb - Facial Laceration, [id number] kb - Head Injury, Adult, [id number] kb Forms: - Medication Reconciliation Form kb - Thank You Letter kb - Antibiotic Education kb - Prescription Opioid Use kb - Patient Portal Instructions kb Addendum: 02/23/2023 19:10 Co-signature as Attending Physician, Arya Robert MD I reviewed the patient's care r t provided by the Advanced Practice Provider and agree with the diagnosis and treatment plan. Signatures: Dispatcher [employer] Nimco Gallagher, TEACHER VISUALLY IMPAIRED-C TEACHER VISUALLY IMPAIRED-Tiffanie Caballero MD MD cp3 Kacy Culver RN RN ap3 Arya Robert MD MD rt
[2023-02-21 11:01] VITALS: TEMP 98.7; O2SAT 100
[2023-02-21 11:02] VITALS: BP 155/88
== END 2023-02-21 10:56 | disposition home or self-care (01) ==
LOC: ER 10:16
PROC: 0HQ0XZZ Repair Scalp Skin, External Approach (ICD-10-PCS; principal; 2023-02-21)
DX: S01.01XA Laceration without foreign body of scalp, initial encounter (principal); W01.0XXA Fall on same level from slipping, tripping and stumbling without subsequent striking against object, initial encounter; I10 Essential (primary) hypertension; Z23 Encounter for immunization; Z95.818 Presence of other cardiac implants and grafts
CPT/HCPCS: 70450; 90471; 99284